=== PATIENT | male | born 1940 | race Caucasian/White ===

== ENCOUNTER 2024-10-16 13:42 | Outpatient (REF) | payer MEDICARE, SELFPAY ==
[2024-10-16 14:20] LABS: INR 1.36
== END 2024-10-16 13:43 | disposition home or self-care (01) ==
LOC: LAB 13:42
PROVIDERS: PCP Family Medicine; Visit Provider Family Medicine
DX: Z79.01 Long term (current) use of anticoagulants (principal)
CPT/HCPCS: 36415; 85610

== ENCOUNTER 2025-01-15 12:28 | Outpatient (REF) | payer MEDICARE, SELFPAY ==
--- OUTSIDE RECORDS SUMMARY | 2024-07-01 17:30 | XMS_ITS ---
Author Organization [facility] Address [address] [place], [place] Care Team Providers Care Travel Rn Name Role Phone RENAY wise Primary Care Provider [phone] Magalis, Provider Unavailable Unavail able Allergies Allergen (clinical drug ingredient) Drug/Non Drug Allergy documented on EMR Reaction Allergy Type Onset Date Status ciprofloxacin Cipro Unknown Drug Allergy Act jesus REASON FOR VISIT [facility] Encounter Medications Medication SIG (Take, Route, Frequency, Duration) Notes Start Date End Date Status Folic Acid 1 MG 1 tab(s) orally once a day Active Vitamin B1 100 MG 1 tab(s) orally once a day Active Multivitamin MULTIPLE VITAMINS 1 CAP(S) ORALLY ONCE A DAY *Please review and pick correct strength-formulati on from [facility] options. If intended option is not shown, discontinue and re-order from Quick Search* Active Omeprazole 40 MG 1 cap(s) orally BID for 30 day(s) Active K-DUR 20 20 MEQ 1 TAB(S) ORALLY TID *Please review for potential replacement for e-prescription and drug interaction check* 08/05/2010 Active Encounters Encounter Location Date Provider Diagnosis [facility] [address] [place], [place] 07/01/2024 Provider Magalis Hypokalemia 276.8 Assessments Encounter Date Diagnosis (ICD Code) Assessment Notes Treatment Notes Treatment Clinical Notes Section Notes 07/01/2024 Hypokalemia (ICD9-CM - 276.8) Plan Of Treatment Medication Medication Name Sig Start Date Stop Date Notes K-DUR 20 20 MEQ 1 TAB(S) ORALLY TID 08/05/2010 *Please review for potential replacement for e-prescription and drug interaction check* Progress Notes * NINA HAINESDOB: [birth year] (84 yo M)Acc No.[id number]:07/01/2024 Patient: NINA NUÑEZ Provider: :1940 A ge:84 Y S ex:Male Date:07/01/2024 Address:[address] [place] [address], [place], [id number] Pcp:ERNAY wise Subjective: * Chief Complaints: * [facility] . [facility] * Medical History: * Medications: T aking Folic Acid 1 MG Tablet 1 tab(s) orally once a day , Taking Multivitamin MULTIPLE VITAMINS CAPSULE 1 CAP(S) ORALLY ONCE A DAY , Notes to Pharmacist: *Please review and pick correct strength-formulation [facility]. If intended option is not shown, discontinue and re-order from Quick Search*, Taking Vitamin B1 100 MG Tablet 1 tab(s) orally once a day , Taking Omeprazole 40 MG Capsule Delayed Release 1 cap(s) orally BID * Allergies: C ipro. Objective: * Vitals: Assessment: * Assessment: 1. H ypokalemia - 276.8 Plan: * Treatment: * Billing Information: * Visit Code: * Procedure Codes: * Electronic signature of Molly Blancas on 01/15/2025 at 12:34 PM EDT Sign off status: Pending * Provider: Date: 09/01/2023 Generated for Emy castillo/Abelardo/Jean-Claude on: 0 01/15/2025 12:34 PM EDT
--- OUTSIDE RECORDS SUMMARY | 2025-01-15 12:33 | XMS_ITS | Patient Health Record ---
Author Organization [facility] Address [address] [place] [address] Care Team Providers Care Brick Grader Name Role Phone RENAY wise Primary Care Provider ZZZLAYLAMilillyation, Provider Unavailable Unavail able Allergies Allergen (clinical drug ingredient) Drug/Non Drug Allergy documented on EMR Reaction Allergy Type Onset Date Status ciprofloxacin Cipro Unknown Drug Allergy Act jesus Reason For Referral No Information Medications Medication SIG (Take, Route, Frequency, Duration) Notes Start Date End Date Status Folic Acid 1 MG 1 tab(s) orally once a day Active Vitamin B1 100 MG 1 tab(s) orally once a day Active Multivitamin MULTIPLE VITAMINS 1 CAP(S) ORALLY ONCE A DAY *Please review and pick correct strength-formulati on from [facility] options. If intended option is not shown, discontinue and re-order from Quick Search* Active Omeprazole 40 MG 1 cap(s) orally BID for 30 day(s) Active K-DUR 20 20 MEQ 1 TAB(S) ORALLY TID *Please review for potential replacement for e-prescription and drug interaction check* 08/05/2010 Active Encounters Encounter Location Date Provider Diagnosis [facility] [address] [place] [address] 07/01/2024 Provider Magalis Hypokalemia 276.8 Assessments Encounter Date Diagnosis (ICD Code) Assessment Notes Treatment Notes Treatment Clinical Notes Section Notes 07/01/2024 Hypokalemia (ICD9-CM - 276.8) Plan Of Treatment Pending Test Test Name Order Date CBC 08/01/2010 Magnesium 08/01/2010 Phosphorus 08/01/2010 CMP 08/01/2010 Insurance Providers Payer Name Payer Address Payer Phone Subscriber Number Group Number Insured Name Patient Relationship to Insured Coverage Start Date Coverage End Date MEDICARE [address] [place] [phone] [id number] NINA HAINES Self - patient is the insured [facility] Secondary [address] [place] [phone] [id number] NINA HAINES Self - patient is the insured Medical (General) History Medical History History ICD Code Pneumonia h/o Tobacco Abuse Erectile Dysfunction Anxiety diarrhea Barretts Esophagus BPH h/o Ethanol Abuse Surgical History Surgery Date(Month/Year) Cholecystectomy Hospitalization History Reason Date(Month/Year) diarrhea dehydration 07/2010
--- OUTSIDE RECORDS SUMMARY | 2025-01-15 12:33 | XMS_ITS | Encounter Summary ---
Author Organization [facility] Address [address] [place] [address] Care Team Providers Care Director Food And Beverage Name Role Phone Tarun Tapia MD Primary Care Provider [phone] Encounter Details Date Type Department Care Team (Late st Contact Info) Description 09/25/2024 Abstract [facility] [address] [place] [address] Unallocated, Noms Provider, [address] [place] [address] Social History Tobacco Use Types Packs/Day Years Used Date Smoking Tobacco: Never Smokeless Tobacco: Never Sex and Gender Information Value Date Recorded Sex Assigned at Not on file Legal Sex Male 7:14 PM EDT Gender Identity Not on file Sexual Orientation Not on file documented as of this encounter Plan of Treatment Upcoming Encounters Date Type Department Care Team (Late st Contact Info) Description 01/29/2025 1:20 PM EDT Office Visit [facility] [address] [place] [address] Connor Hill, DPM FACFAS [address] [facility] [place] [address] 02/02/2025 1:45 PM EDT Office Visit [facility] [address] [place] [address] Gabriel Schroeder, PA [address] [place] [address] 12/13/2025 1:00 PM EDT Office Visit [facility] [address] [place] [phone] Kaylan Barnes MD [address] [place] [address] documented as of this encounter Visit Diagnoses Not on filedocumented in this encounter Care Teams Director Food And Beverage Relationship Specialty Start Date End Date Tarun Tapia MD [address] [place] [address] PCP - General Internal Medicine 02/23/24 documented as of this encounter
--- OUTSIDE RECORDS SUMMARY | 2025-01-15 12:33 | XMS_ITS | Encounter Summary ---
Author Organization [facility] Address [id number] [address] [place] [address] Care Team Providers Care Washer Off Name Role Phone Julio Munroe MD Primary Care Provider [phone] Encounter Details Date Type Department Care Team (Late st Contact Info) Description 09/20/2024 Orders Only [facility] [address] [place] [id number] Transcribe, Orders Support User Pain (Primary Dx) Social History Tobacco Use Types Packs/Day Years Used Date Smoking Tobacco: Never Smokeless Tobacco: Never Alcohol Use Standard Drinks/Week Comments Not Currently 0 (1 standard drink = 0.6 oz pur e alcohol) [facility] Utilities Answer Date Recorded In the past 12 months has th e electric, gas, oil, or water company threatened to shut off services in your home? No 09/20/2024 AUDIT-C Answer Date Recorded Q1: How often do you have a drink containing alc ohol? Monthly or less 09/20/2024 Q2: How many drinks containi ng alcohol do you have on a typical day when you are drinking? 1 or 2 09/20/2024 Q3: How often do you have si x or more drinks on one occasion? Never 09/20/2024 PHQ-2 Answer Date Recorded Total Score 0 09/20/2024 PRAPARE - Transportation Answer Date Re corded In the past 12 months, has l ack of transportation kept you from medical appointments or from getting medications? No 09/09 In the past 12 months, has l ack of transportation kept you from meetings, work, or from getting things needed for daily living? No 09/20/2024 Housing Instability Answer Date Recorde d Are you worried or concerned that in the next two months you may not have stable housing that you own, rent or stay in as a part of a household? No 09/20/2024 Hunger Screening Answer Date Recorded Within the past 12 months we worried whether our food would run out before we got money to buy more. Never True 09/20/2024 Within the past 12 months th e food we bought just didn't last and we didn't have money to get more. Never True 09/20/2024 Sex and Gender Information Value Date Recorded Sex Assigned at Not on file Legal Sex Male 11:39 PM EDT Gender Identity Not on file Sexual Orientation Not on file documented as of this encounter Functional Status * Audit-C Score Answer Date of Assessment Author 1 09/20/2024 2:08 PM EDT Ra amy Schulz RN * Question Answer Date of Assessment Author Q1: How often do you have a drink containing alcohol? Monthly or less 09/20/2024 2:08 PM EDT Reta Schulz RN Q2: How many drinks containing alcohol do you have on a typical day when you are drinking? 1 or 2 09/20/2024 2:08 PM EDT Kalpana Schulz RN Q3: How often do you have six or more drinks on one occasion? Never 09/20/2024 2:08 PM EDT Kalpana Schulz RN * Question Answer Date of Assessment Author Functional Status Minimum assistance 09/20/2024 2:06 P M EDT Kalpana Schulz RN documented as of this encounter Mental Status * Question Answer Entry Date Author Overall Cognitive Status X 09/21/2024 2:01 PM EDT Curt Owens, Student OT * Question Answer Entry Date Author Overall Cognitive Status X 09/20/2024 9:08 AM EDT Sarah Bennett, WES-MAGAZINE EDITOR documented in this encounter Plan of Treatment Not on file documented as of this encounter Goals Goal Patient Goal Type Associated Problems Recent Progress Patient-Stated? Author <enter goal here> General Yes Tania Hernandez, RN Note: Evaluation of progress towards goal: DC safely to SNF documented as of this encounter Results * CT brain without contrast stroke alert (09/19/2024 11:05 PM EDT) us Scanning Provider External IMG CT ORDERABLES Fin al Result * X-ray chest 1 view (09/19/2024 11:05 PM EDT) us Scanning Provider External IMG DIAGNOSTIC IMAGIN G ORDERABLES Final Result * CT angiogram head (09/19/2024 11:00 PM EDT) us Scanning Provider External IMG CT ORDERABLES Fin al Result documented in this encounter Visit Diagnoses Diagnosis Pain- Primary Generalized pain documented in this encounter Additional Health Concerns Assessment Noted Time PHQ-9 Depression Total Score: 0 09/21/19 25 2:08 PM EDT documented as of this encounter Care Teams Washer Off Relationship Specialty Start Date End Date Julio Munroe MD [address] [place] [address] PCP - General Family Medicine 09/20/24 documented as of this encounter
--- OUTSIDE RECORDS SUMMARY | 2025-01-15 12:33 | XMS_ITS | Encounter Summary ---
Author Organization [facility] Address [id number] [address] [place] [address] Care Team Providers Care Order Clerk Name Role Phone Julio Munroe MD Primary Care Provider [phone] Reason for Visit * Reason Onset Date Comments Sign Off Patient Care 09/28/2024 Encounter Details Date Type Department Care Team (Late st Contact Info) Description 09/28/2024 Telephone [facility] [address] [place] [address] Cassia Pemberton MD [address] [place], [place] [id number] Sign Off Patient Care Social History Tobacco Use Types Packs/Day Years Used Date Smoking Tobacco: Never Smokeless Tobacco: Never Alcohol Use Standard Drinks/Week Comments Not Currently 0 (1 standard drink = 0.6 oz pur e alcohol) C Utilities Answer Date Recorded In the past 12 months has [employer], gas, oil, or water [employer] threatened to shut off services in your [...] on file documented as of this encounter Miscellaneous Notes * Telephone Encounter - Umm Coleman - 09/28/2024 9:07 AM EDT PER MESSAGE FROM THE 09/27/2024 D/C LIST: PER AAJ; HE HAS SIGNED OFF PT CARE FROM [facility] DX: ACUTE CVA,AFIB-PT NEEDS TO F/U IN 1-2 WEEKS-[facility] * Telephone Encounter - Alyssa Diaz CMA - 09/28/2024 9:07 AM EDT Pt still currenlty admitted * Telephone Encounter - Genet Plummer - 09/28/2024 9:07 AM EDT Currently admitted * Telephone Encounter - Alyssa Steel MA - 09/28/2024 9:07 AM EDT Pt still currently admitted to [facility]. JLW * Telephone Encounter - Alyssa Diaz CMA - 09/28/2024 9:07 AM EDT PT STILL CURRENTLY ADMITTED * Telephone Encounter - Bernice Hernandez - 09/28/2024 9:07 AM EDT PT STILL ADMITTED * Telephone Encounter - Genet Plummer - 09/28/2024 9:07 AM EDT Sched 10/10 documented in this encounter Plan of Treatment Not on file documented as of this encounter Goals Goal Patient Goal Type Associated Problems Recent Progress Patient-Stated? Author <enter goal here> General Yes Tania Hernandez, MANDY Note: Evaluation of progress towards goal: DC safely to SNF documented as of this encounter Visit Diagnoses Not on filedocumented in this encounter Additional Health Concerns Assessment Noted Time PHQ-9 Depression Total Score: 0 09/21/19 2:08 PM EDT documented as of this encounter Care Teams Order Clerk Relationship Specialty Start Date End Date Julio Munroe MD [address] [facility] [address] [place] [address] PCP - General Family Medicine 09/20/24 documented as of this encounter
--- OUTSIDE RECORDS SUMMARY | 2025-01-15 12:33 | XMS_ITS | Encounter Summary ---
Author Organization [facility] Address [address] [place] [address] Care Team Providers Care Checkerer Hand Name Role Phone Tarun Tapia MD Primary Care Provider [phone] Encounter Details Date Type Department Care Team (Late st Contact Info) Description 10/30/2024 Abstract [facility] [address] [place] [address] Unallocated, Noms Provider, [address] [place] [address] Social History Tobacco Use Types Packs/Day Years [...] EDT Office Visit [facility] [address] [place] [address] Connor Hill, DPM FACFAS [address] [facility] [place] [address] 02/02/2025 1:45 PM EDT Office Visit [facility] [address] [place] [address] Gabriel Schroeder, PA [address] [place] [address] 12/13/2025 1:00 PM EDT Office Visit [facility] [address] [place] [phone] Kaylan Barnes MD [address] [place] [address] documented as of this encounter Visit Diagnoses Not on filedocumented in this encounter Care Teams Checkerer Hand Relationship Specialty Start Date End Date Tarun Tapia MD [address] [place] [address] PCP - General Internal Medicine 02/23/24 documented as of this encounter
--- OUTSIDE RECORDS SUMMARY | 2025-01-15 12:33 | XMS_ITS | Encounter Summary ---
Author Organization [facility] Address [id number] [address] [place] [address] Care Team Providers Care Sheriffs Detective Name Role Phone Julio Munore MD Primary Care Provider [phone] Encounter Details Date Type Department Care Team (Late st Contact Info) Description 09/22/2024 Orders Only [facility] [place] [address] External, Scanning Provider Pain (Primary Dx) Social History Tobacco Use Types Packs/Day Years Used Date Smoking Tobacco: Never Smokeless Tobacco: Never Alcohol Use Standard Drinks/Week Comments Not Currently 0 (1 standard drink = 0.6 oz pur e alcohol) [facility] Utilities Answer Date Recorded In the past [...] on file documented as of this encounter Mental Status * Question Answer Entry Date Author Overall Cognitive Status WFL 09/25/2024 8:39 AM EDT Cadence Dye OTA/L documented in this encounter Plan of Treatment Not on file documented as of this encounter Goals Goal Patient Goal Type Associated Problems Recent Progress Patient-Stated? Author <enter goal here> General Yes Tania Hernandez, RN Note: Evaluation of progress towards goal: DC safely to SNF documented as of this encounter Results * Non [facility] (08/14/2024 10:10 AM EST) Narrative [facility] - 09/22/2024 9:57 AM EDT This order has been auto-finalized and does not contain a result. us Scanning Provider External CV CARDIAC SERVICES O RDERABLES Final Result [facility] * Non [facility] Echo (08/14/2024 10:05 AM EST) us Scanning Provider External CV ECHO ORDERABLES Fi nal Result XCELERA * Nuc stress Lexiscan (08/14/2024 10:05 AM EST) Narrative [facility] - 09/22/2024 9:57 AM EDT This order has been auto-finalized and does not contain a result. us Scanning Provider External CV STRESS ORDERABLES Final Result SECTRA[facility]G documented in this encounter Visit Diagnoses Diagnosis Pain Generalized pain Pain Generalized pain Pain- Primary Generalized pain documented in this encounter Additional Health Concerns Assessment Noted Time PHQ-9 Depression Total Score: 0 09/21/19 25 2:08 PM EDT documented as of this encounter Care Teams Sheriffs Detective Relationship Specialty Start Date End Date Julio Munroe MD 112 [facility] [address] [place] [address] PCP - General Family Medicine 09/20/24 documented as of this encounter
--- OUTSIDE RECORDS SUMMARY | 2025-01-15 12:33 | XMS_ITS | Encounter Summary ---
Author Organization [facility] Address [id number] [address] [place] [address] Care Team Providers Care Rubber Extrusion Machine Operator Name Role Phone Julio Munroe MD Primary Care Provider [phone] Encounter Details Date Type Department Care Team (Late st Contact Info) Description 09/21/2024 Orders Only [facility] [place] [address] Transcribe, Orders Support User Social History Tobacco Use Types Packs/Day Years Used Date Smoking Tobacco: Never Smokeless Tobacco: Never Alcohol Use Standard Drinks/Week Comments Not Currently 0 (1 standard drink = 0.6 oz pur e alcohol) [facility] Utilities Answer Date Recorded In the [...] 2:01 PM EDT Curt Owens, Student OT documented in this encounter Plan of Treatment [...] documented as of this encounter Care Teams Rubber Extrusion Machine Operator Relationship Specialty Start Date End Date Julio Munroe MD [address] [facility] [address] [place] [address] PCP - General Family Medicine 09/20/24 documented as of this encounter
--- OUTSIDE RECORDS SUMMARY | 2025-01-15 12:33 | XMS_ITS | Encounter Summary ---
Author Organization [facility] Address [address] [place] [address] Care Team Providers Care Beef Lugger Name Role Phone Tarun Tapia MD Primary Care Provider [phone] Encounter Details Date Type Department Care Team (Late st Contact Info) Description 01/03/2025 Abstract [facility] [address] [place] [address] Orlin Bain DO [address] [place] [address] Social History Tobacco Use Types Packs/Day Years [...] EDT Office Visit [facility] [address] [place] [address] Connor Hill, DPM FACFAS [address] [place] [address] 02/02/2025 1:45 PM EDT Office Visit [facility] [address] [place] [address] Gabriel Schroeder PA [address] [place] [address] 12/13/2025 1:00 PM EDT Office Visit [facility] [address] [place] [address] Kaylan Barnes MD [address] [place] [address] documented as of this encounter Visit Diagnoses Not on filedocumented in this encounter Care Teams Beef Lugger Relationship Specialty Start Date End Date Tarun Tapia MD [address] [facility] [place] [address] PCP - General Internal Medicine 02/23/24 documented as of this encounter
--- OUTSIDE RECORDS SUMMARY | 2025-01-15 12:34 | XMS_ITS | Encounter Summary ---
Author Organization [facility] Sys tem Address [id number] [address] [place] [address] Care Team Providers Care Table Inspector Name Role Phone Julio Munroe MD Primary Care Provider [phone] Encounter Details Date Type Department Care Team (Late st Contact Info) Description 01/03/2025 Orders Only [facility] [address] [place] [address] External, Scanning Provider Social History Tobacco Use Types Packs/Day Years Used Date Smoking Tobacco: Former Cigarettes Smokeless Tobacco: Never Comments:Quit in 1987 Alcohol Use Standard Drinks/Week Comments Not Currently 0 (1 standard drink = 0.6 oz pur e alcohol) [facility] Utilities Answer Date Recorded In [...] 09/20/2024 PHQ-2 Answer Date Recorded Total Score 3 10/26/2024 PRAPARE - Transportation Answer Date Re corded [...] got money to buy more. Never True 12/21/2024 Within the past 12 months th e food we bought just didn't last and we didn't have money to get more. Never True 12/21/2024 Sex and Gender Information Value Date Recorded Sex Assigned at Not on file Legal Sex Male 11:39 PM EDT Gender Identity Not on file Sexual Orientation Not on file documented as of this encounter Plan of Treatment Not on file documented as of this encounter Goals Goal Patient Goal Type Associated Problems Recent Progress Patient-Stated? Author <enter goal here> General Yes Tania Hernandez, RN Note: Evaluation of progress towards goal: DC safely to SNF documented as of this encounter Procedures Procedure Name Priority Date/Time Associated Diagnosis Comments ECG 12-LEAD Routine 09/19/2024 9:07 AM EDT documented in this encounter Results * ECG 12 lead (09/19/2024 9:07 AM EDT) us Scanning Provider External ECG ORDERABLES Final Result MANUALLY TRANSCRIBED RESULTS documented in this encounter Visit Diagnoses Not on filedocumented in this encounter Additional Health Concerns Assessment Noted Time PHQ-9 Depression Total Score: 3 10/27/19 25 2:01 PM EDT documented as of this encounter Care Teams Table Inspector Relationship Specialty Start Date End Date Julio Munroe MD [address] [place] [id number] PCP - General Family Medicine 09/20/24 documented as of this encounter
--- OUTSIDE RECORDS SUMMARY | 2025-01-15 12:34 | XMS_ITS | Clinical Summary ---
Author Organization [facility] Address [address] [place] [address] Care Team Providers Care Manager Food Safety Name Role Phone Tarun Tapia MD Primary Care Provider [phone] Allergies Active Allergy Reactions Criticality Noted Date Comments Ciprofloxacin Swelling 07/24/2013 Other Reaction(s): Eyelid swelling, Unknown Onion Low 03/26/2021 Other Reaction(s): Intolerance diarrhea Medications furosemide (Lasix) 40 MG tablet Take 40 mg by mouth in the morning. Active potassium chloride CR (K-Tab) 20 MEQ ER tablet Take 20 mEq by mouth in the morning. 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 10 mL 1 4 Active Active Problems No known active problems Encounters Date Type Department Care Team Description 01/08/2025 Clinisync Result Encounter [facility] External Department Unsolicited Orlin Bain, DO 01/07/2025 Clinisync Result Encounter [facility] External Department Unsolicited Orlin Bain, DO 01/06/2025 Clinisync Result Encounter [facility] External Department Unsolicited Orlin Bain, DO 01/05/2025 Clinisync Result Encounter [facility] External Department Unsolicited Orlin Bain, DO 01/04/2025 Clinisync Result Encounter [facility] External Department Unsolicited Orlin Bain, DO 01/03/2025 Abstract [facility] [address] [place] [address] Orlin Bain DO 12/18/2024 Telephone [facility] [address] [place] [address] Isabela Stock LPN Appointment Request 12/11/2024 2:00 PM EDT Office Visit [facility] [address] [place] [address] Kaylan Barnes MD Glaucoma suspect of both eyes (Primary Dx); Pseudophakia; PCO (posterior capsular opacification), bilateral 12/11/2024 Bamboo flowsheet [facility] [address] [place] [address] Kaylan Barnes MD 12/11/2024 Travel 10/30/2024 Abstract [facility] [address] [place] [phone] Unallocated, [facility] MD [place] 10/16/2024 Clinisync Result Encounter [facility] External Department Unsolicited Julio Munroe MD from Last 3 Months Family History Medical History Relation Name Comments Melanoma Neg Hx Social History Tobacco Use Types Packs/Day Years Used Date Smoking Tobacco: Never Smokeless Tobacco: Never Tobacco Cessation:Counseling Given: Not Answered Sex and Gender Information Value Date Recorded Sex Assigned at Not on file Legal Sex Male 7:14 PM EDT Gender Identity Not on file Sexual Orientation Not on file Plan of Treatment Upcoming Encounters Date Type Department Care Team (Late st Contact Info) Description 01/29/2025 1:20 PM EDT Office Visit [facility] [address] [place] [address] Connor Hill, DPM FACFAS [address] [place] [address] 02/02/2025 1:45 PM EDT Office Visit [facility] [address] [place] [address] Gabriel Schroeder, PA [address] [place] [address] 12/13/2025 1:00 PM EDT Office Visit [facility] [address] [place] [address] Kaylan Barnes MD [address] [place] [address] Health Maintenance Due Date Last Done Comments Influenza Vaccine (#1) 2025 4, 03/25/2023, 04/07/2022, Additional history exists Pneumococcal Vaccine: 65+ Years Completed 04/21/2016, 04/05/2015, 07/08/2009 Procedures Procedure Name Priority Date/Time Associated Diagnosis Comments [facility] EGFR Routine 01/08/2025 5:[address] [facility] LYTES Routine 01/08/2025 5:[address] [facility] CREATININE Routine 01/08/2025 5:[address] [facility] BUN Routine 01/08/2025 5:[address] [facility] CBC W/ AUTO DIFF Routine 01/08/2025 5:[address] [facility] EGFR Routine 01/07/2025 5:[address] [facility] LYTES Routine 01/07/2025 5:[address] [facility] CREATININE Routine 01/07/2025 5:[address] [facility] BUN Routine 01/07/2025 5:[address] [facility] CBC W/ AUTO DIFF Routine 01/07/2025 5:[address] [facility] CBC W/ AUTO DIFF Routine 01/06/2025 4:[address] [facility] EGFR Routine 01/06/2025 4:[address] [facility] LYTES Routine 01/06/2025 4:[address] [facility] CREATININE Routine 01/06/2025 4:[address] [facility] BUN Routine 01/06/2025 4:46 AM EDT XR HIP 1 VIEW LEFT + PELVIS 01/05/2025 2:[address] [facility] PT & PTT Routine 01/04/2025 12:54 PM EDT [facility] PROTHROMBIN TIME INR W/O COUM Routine 10/16/2024 1:00 PM EDT from Last 3 Months Results * [facility] LYTES (01/08/2025 5:23 AM EDT) Only the most recent of3 resultswithin the time period is included. [facility] SODIUM LVL 137 135 - 145 mmol/L [facility] POTASSIUM 3.6 3.5 - 5.3 mmol/L [facility] CHLORIDE 103 101 - 111 mmol/L [facility] CO2 28 21 - 31 mmol/L [facility] AGAP 10 6 - 16 mEq/L [facility] Blood 01/08/2025 5:23 AM EDT 01/08/2025 5:46 AM EDT Narrative [facility]IS[facility]NC - 01/08/2025 6:10 AM EDT Original Ordering Provider: DO Orlin Bain us Orlin Bain DO CLINISYNC Final Result [facility]NC [facility] * [facility] EGFR (01/08/2025 5:23 AM EDT) Only the most recent of3 resultswithin the time period is included. [facility] EGFR 59 >=59 mL/min/1.[address] [facility] Blood 01/08/2025 5:23 AM EDT 01/08/2025 5:46 AM EDT Narrative [facility]YNC - 01/08/2025 6:10 AM EDT Original Ordering Provider: DO Orlin Hernández Pocos Orlin Hernández Pocos DO CLINISYNC Final Result Performing Organization Address [facility] Co de Phone Number [facility] * FT CREATININE (01/08/2025 5:23 AM EDT) Only the most recent of3 resultswithin the time period is included. [facility] CREATININE 1.2 0.5 - 1.3 mg/dL [facility] Blood 01/08/2025 5:23 AM EDT 01/08/2025 5:46 AM EDT Narrative CLINISYNC - 01/08/2025 6:10 AM EDT Original Ordering Provider: DO Orlin Bain Orlin Hernández Pocos DO CLINIS[facility]NC Final Result Performing Organization Address [facility] de Phone Number [facility] * (ABNORMAL) [facility] CBC W/ AUTO DIFF (01/08/2025 5:23 AM EDT) Only the most recent of3 resultswithin the time period is included. [facility] WBC 6.5 4.0 - 11.0 E9/L [facility] RBC 3.5(L) 4.3 - 5.9 E12/L [facility] HGB 11.0(L) 13.5 - 17.5 gm/dL [facility] HCT 32.8(L) 37.7 - 49.0 % [facility] RDW 15.4(H) 10.9 - 14.2 % [facility] MCH 31.0 27.0 - 34.0 pg [facility] MCHC 33.4 31.4 - 36.0 gm/dL [facility] MCV 92.9 80.0 - 100.0 fL [facility] MPV 7.5 6.4 - 10.8 fL [facility] PLATELET 219.0 150.0 - 500.0 E9/L [facility] NEUTRO AUTO 69.2 36.0 - 75.0 % [facility] LYMPH AUTO 18.5 14.0 - 50.0 % [facility] MONO AUTO 8.9 4.0 - 14.0 % [facility] EOS AUTO 2.1 0.0 - 8.0 % [facility] BASOPHIL AUTO 1.3 0.0 - 2.0 % [facility] NEUTRO ABSOLUTE 4.5 2.0 - 7.5 E9/L [facility] LYMPH ABSOLUTE 1.2 1.0 - 4.0 E9/L [facility] MONO ABSOLUTE 0.6 0.2 - 1.0 E9/L [facility] EOS ABSOLUTE 0.1 0.0 - 0.5 E9/L [facility] BASOPHIL ABSOLUTE 0.1 0.0 - 0.2 E9/L [facility] Blood 01/08/2025 5:23 AM EDT 01/08/2025 5:45 AM EDT Narrative CLINISYNC - 01/08/2025 5:52 AM EDT Original Ordering Provider: DO Orlin Bain us Orlin Bain DO CLINISYNC Final Result Performing Organization Address [facility]/ZIP Co de Phone Number [facility] * (ABNORMAL) [facility] BUN (01/08/2025 5:23 AM EDT) Only the most recent of3 resultswithin the time period is included. [facility] BUN 26(H) 5 - 21 mg/dL [facility] Blood 01/08/2025 5:23 AM EDT 01/08/2025 5:46 AM EDT Narrative CLINISYNC - 01/08/2025 6:10 AM EDT Original Ordering Provider: DO Orlin Bain us Orlin Bain DO CLINIS[facility]NC Final Result Performing Organization Address City/[facility]/ZIP Co de Phone Number CLINISYNC [facility] * XR HIP 1 VIEW LEFT + PELVIS (01/05/2025 2:51 PM EDT) Anatomical Region Laterality Modality Other 01/05/2025 2:51 PM EDT Narrative 01/05/2025 3:00 PM EDT Exam Date/Time: 01/05/2025 14:52 EDT Reason for Exam: Post Op Report IMPRESSION: UNREMARKABLE RECENT LEFT HIP HEMIARTHROPLASTY PLACEMENT. EXAM: XR Hip 1 View Left + Pelvis DATE: 01/05/2025 2:51 PM CLINICAL HISTORY: Post Op. COMPARISON: 01/03/2025. TECHNIQUE: A portable AP radiograph of the pelvis and crosstable lateral radiograph of the left hip was obtained. FINDINGS: A left hip hemiarthroplasty is noted in expected position. There is no dislocation, periprosthetic fracture, or other significant changes from 01/03/2025 identified. Mild soft tissue emphysema and overlying skin laxmi are noted from recent placement. Ordering Provider: Orlin Bain FINAL REPORT Dictated: 01/05/2025 2:57 pm Shaun Rodriguez MD Signed (Electronic Signature): 01/05/2025 2:57 pm Signed by: Shaun Rodriguez MD Transcribed by: NATHEN Technologist: KATI Procedure Note Radiology, Radiologist, MD - 01/05/2025 Exam Date/Time: 01/05/2025 14:52 EDT Reason for Exam: Post Op Report IMPRESSION: UNREMARKABLE RECENT LEFT HIP HEMIARTHROPLASTY PLACEMENT. EXAM: XR Hip 1 View Left + Pelvis DATE: 01/05/2025 2:51 PM CLINICAL HISTORY: Post Op. COMPARISON: 01/03/2025. TECHNIQUE: A portable AP radiograph of the pelvis and crosstable lateralradiograph of the left hip was obtained. FINDINGS: A left hip hemiarthroplasty is noted in expected position. There is no dislocation, periprosthetic fracture, or other significantchanges from 01/03/2025 identified. Mild soft tissue emphysema and overlying skin laxmi are noted fromrecent placement. Ordering Provider: Orlin Bain FINAL REPORT Dictated: 01/05/2025 2:57 pm Shaun Rodriguez MD Signed (Electronic Signature): 01/05/2025 2:57 pm Signed by: Shaun Rodriguez MD Transcribed by: NATHEN Technologist: KATI Orlin Bain DO CLINISYNC IMAGING Final Result * (ABNORMAL) [facility] PT & PTT (01/04/2025 12:54 PM EDT) PT 22.7(H) 9.4 - 12.5 second(s) [facility] Comment: 15 days - 4 weeks 1 - 5 months 6 -11 months 1-5 years 6-10 years 11 -17 years Mean: 11.2 (9.5-12.6) Mean: 11.0 (9.7-12.8) Mean: 11.0 (9.8-13.0) Mean: 11.3 (9.9-13.4) Mean: 11.7 (10.0-14.6) Mean: 11.8 (10.0 - 14.1) Pediatric Reference ranges were obtained from a study by Juvencio Owens et al. prepared from 1437 samples obtained at 7 different centers using the same coagulation reagent and instrumentation as [facility]. Currently there are no coagulation studies available worldwide for children to 14 days, and no normal ranges. PTT 38.8(H) 25.1 - 36.5 second(s) [facility] Comment: Parameter 15 days - 4 weeks 1 - 5 months 6 - 11 months 1 - 5 years 6 - 10 years 11 - 17 years PTT Mean: 35.4 (27.6-45.6) Mean: 33.5 (24.8-40.7) Mean: 32.4 (25.1-40.7) Mean: 31.6 (24.0-39.2) Mean: 31.6 (26.9-38.7) Mean: 31.0 (24.6-38.4) Pediatric Reference ranges were obtained from a study by Juvencio Owens et macario. prepared from 1437 samples obtained at 7 different centers using the same coagulation reagent and instrumentation as [facility]. Currently there are no coagulation studies available worldwide for children to 14 days, and no normal ranges. Heparin therapeutic range (represented by Anti-Factor Xa activity of 0.2 - 0.4 U/mL) corresponds to PTT of 56.6 - 109.[address] [facility] Comment: INR results are specifically intended to assess patients stabilized on long-term Anticoagulation therapy suggested INR???s ???Less Intensive Anticoagulation??? 2.0 ??? 3.0 Conventional Range 3.0 ??? 4.5 Blood 01/04/2025 12:5 4 PM EDT 01/04/2025 12:56 PM EDT Narrative CLINISYNC - 01/04/2025 1:09 PM EDT pt en route to asu for pre op Original Ordering Provider: DO Orlin Bain us Orlin Bain DO CLINIS[facility]NC Final Result [facility]ISYNC [facility] * (ABNORMAL) [facility] PROTHROMBIN TIME INR W/O COUM (10/16/2024 1:00 PM EDT) PROTHROMBIN TIME 14.0(H) 9.0 - 11.6 sec [facility] INR 1.36 [facility] Comment: DESIRED INR: 2.0-3.0 CONDITIONS NOT LISTED BELOW 2.5-3.5 FOR PROSTHETIC HEART VALVE REPLACEMENT 2.5-3.5 RECURRENT THROMBOSIS 10/16/2024 1:00 PM EDT 10/16/2024 1:46 PM EDT Narrative CLINISYNC - 10/16/2024 2:39 PM EDT [facility] DROP OFF us Julio Munroe MD CLINISYNC Final Result [facility] from Last 3 Months Insurance [employer] Care Teams Manager Food Safety Relationship Specialty Start Date End Date Tarun Tapia MD [address] [place] [address] PCP - General Internal Medicine 02/23/24
--- OUTSIDE RECORDS SUMMARY | 2025-01-15 12:34 | XMS_ITS | Encounter Summary ---
Author Organization [facility] Sys tem Address [id number] [address] [place] [place] [address] Care Team Providers Care Group Home Supervisor Name Role Phone Julio Munroe MD Primary Care Provider [phone] Encounter Details Date Type Department Care Team (Late st Contact Info) Description 01/04/2025 Orders Only [facility] [address] [place] [phone] External, Scanning Provider Social History Tobacco Use Types Packs/Day Years Used Date Smoking Tobacco: Former Cigarettes Smokeless Tobacco: Never Comments:Quit in 1987 Alcohol Use Standard Drinks/Week Comments Not Currently 0 (1 standard drink = 0.6 oz pur e alcohol) [facility] Utilities Answer Date Recorded In the [...] Procedure Name Priority Date/Time Associated Diagnosis Comments CARDIAC INVASIVE Routine 08/14/2024 11:3 9 AM EST documented in this encounter Results * Cardiac Invasive (08/14/2024 11:39 AM EST) Anatomical Region Laterality Modality Other us Scanning Provider External CV CARDIAC CATH ORDER REUBEN Final Result documented in this encounter Visit Diagnoses Not on filedocumented in this encounter Additional Health Concerns Assessment Noted Time PHQ-9 Depression Total Score: 3 10/27/19 25 2:01 PM EDT documented as of this encounter Care Teams Group Home Supervisor Relationship Specialty Start Date End Date Julio Munroe MD [address] [facility] [address] [place] [address] PCP - General Family Medicine 09/20/24 documented as of this encounter
--- OUTSIDE RECORDS SUMMARY | 2025-01-15 12:34 | XMS_ITS | Encounter Summary ---
Author Organization [facility] Sys tem Address [id number] [address] [place] [address] Care Team Providers Care Inside Meter Tester Name Role Phone Julio Munroe MD Primary Care Provider [phone] Encounter Details Date Type Department Care Team (Late st Contact Info) Description 01/05/2025 Orders Only [facility] [address] [place] [address] External, Scanning Provider Social History Tobacco Use Types Packs/Day Years Used Date Smoking Tobacco: Former Cigarettes Smokeless Tobacco: Never Comments:Quit in 1987 Alcohol Use Standard Drinks/Week Comments Not Currently 0 (1 standard drink = 0.6 oz pur e alcohol) [facility] Utilities Answer Date Recorded In the [...] Procedure Name Priority Date/Time Associated Diagnosis Comments MULTIPLE LABS Routine 08/15/2024 7:44 AM EST LIPID PROFILE Routine 08/15/2024 VASC VENOUS DUPLEX LOWER BILATERAL Routine 08/14/2024 7:53 AM EST ECHO COMPLETE W CONTRAST Routine 08/14/2024 7:51 AM EST ECG 12-LEAD Routine 08/13/2024 7:55 AM EST XR CHEST 1 VW Routine 08/13/2024 7:[address] CTA CHEST Routine 08/13/2024 7:48 AM EST documented in this encounter Results * Multiple labs (08/15/2024 7:44 AM EST) us Scanning Provider External DE IMAGING Final Result MANUALLY TRANSCRIBED RESULTS * Lipid profile (08/15/2024) External Cholesterol 109 MANUALLY TRANSCRIBED RESULTS External Hdl Cholesterol 48 MANUALLY TRANSCRIBED RESULTS DIRECT LDL 52 <=130 mg/dL MANUALLY TRANSCRIBED RESULTS External Triglycerides 73 MANUALLY TRANSCRIBED RESULTS Vldl,Cholesterol 15 MAN UALLY TRANSCRIBED RESULTS Blood Venous blood / Unknown us Scanning Provider External LAB BLOOD ORDERABLES Edited Result - Final MANUALLY TRANSCRIBED RESULTS * Vas venous duplex lwr bilateral (08/14/2024 7:53 AM EST) Anatomical Region Laterality Modality Vascular Bilateral Ultrasound us Scanning Provider External CV VASCULAR ORDERABLE S Final Result * Echo complete W/ contrast (08/14/2024 7:51 AM EST) Anatomical Region Laterality Modality Chest N/A Ultrasound us Scanning Provider External CV ECHO ORDERABLES Fi nal Result * ECG 12 lead (08/13/2024 7:55 AM EST) us Scanning Provider External ECG ORDERABLES Final Result Performing Organization Address [facility] de Phone Number MANUALLY TRANSCRIBED RESULTS * X-ray chest 1 view (08/13/2024 7:49 AM EST) Anatomical Region Laterality Modality Body, Chest N/A Computed Radiogr aphy us Scanning Provider External IMG DIAGNOSTIC IMAGIN G ORDERABLES Final Result * CT angiogram chest (08/13/2024 7:48 AM EST) Anatomical Region Laterality Modality Lung, Body, Chest, Vascular, Body Covera N/A Computed Tomography us Scanning Provider External IMG CT ORDERABLES Fin al Result documented in this encounter Visit Diagnoses Not on filedocumented in this encounter Additional Health Concerns Assessment Noted Time PHQ-9 Depression Total Score: 3 10/27/19 25 2:01 PM EDT documented as of this encounter Care Teams Inside Meter Tester Relationship Specialty Start Date End Date Julio Munroe MD [address] [facility] [address] [place] [address] PCP - General Family Medicine 09/20/24 documented as of this encounter
--- OUTSIDE RECORDS SUMMARY | 2025-01-15 12:34 | XMS_ITS ---
Author Organization [employer] [facility] Address [id number] [address] 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 Past Treatment and Therapy Plans No past plan information found. Lifetime Dose Tracking * Chemical Lifetime Dose Automatic Entry Manual Entr y Fluoroscopy 537 mGy 0 mGy 537 mGy
--- OUTSIDE RECORDS SUMMARY | 2025-01-15 12:34 | XMS_ITS | Continuity of Care Document ---
Author Organization [facility] Address [address] [id number] Insurance Providers Payer Plan Claims Address Claims Phone Policy Number Group Number Relation Employer Guarantor Name Guarantor Guarantor Address Guarantor Phone [employer] [address] [address], [place] [address] tel:[phone] Self John Paul Velezgle [address], [place] [address] [employer] [address] [address], [place] [address] [id number] Self John Paul Villanuevae [address], [place] [address] Medic are [id number] Self John Paul Villanuevae [address], [place] [address] Problems Condition ICD9 code ICD10 code SNOMED code Start Date End Date S tatus Displaced subtrochanteric fracture of right femur, subsequent encounter for closed fracture with routine healing S72.21XD 08/31/2024 Active Unspecified systolic (congestive) heart failure I50.20 08/31/2024 Active Malignant neoplasm of prostate C61 08/31/2024 Active Type 2 diabetes mellitus without complications E11.9 08/31/2024 Act jesus Muscle weakness (generalized) M62.81 09/01/2024 Active Difficulty in walking, not elsewhere classified R26.2 09/01/2024 Active Limitation of activities due to disability Z73.6 09/02/2024 Active Dysphagia, oropharyngeal phase R13.12 08/31/2024 Active Cognitive communication deficit R41.841 08/31/2024 Active Nutritional deficiency, unspecified E63.9 09/05/2024 Active Encounter for other orthopedic aftercare Z47.89 08/31/2024 Acti ve 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 I63.511 09/25/2024 Ac tive Cerebral infarction, unspecified I63.9 09/25/2024 Active 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 Refere nce Range Tuberculosis reaction wheal[ 11519-2] Tuberculosis reaction wheal [66510-2] 09/10/2024 05:00 PM 0 mm NEG Tuberculosis reaction wheal[ 72508-8] Tuberculosis reaction wheal [95152-0] 09/10/2024 05:00 PM See note TB test Tuberculosis reaction wheal[ 19965-9] Tuberculosis reaction wheal [00345-2] 08/31/2024 03:10 PM 0 mm NEG Allergies, adverse reactions, alerts Substance Reaction Date Status Type ciprofloxacin (bulk) 08/31/2024 Non Drug Immunizations Vaccine Route Date Status COVID-19 Vaccine Unassigned Route of Administration Completed Influenza Vaccine Unassigned Route of Administration 0 03/28/2024 Completed Pneumococcal Vaccine Unassigned Route of Administratio n 04/21/2016 Completed COVID-19 Vaccine Unassigned Route of Administration Refused Medications Medication Instructions Route Dosage Frequency Start Date Stop Date Indications Status acetaminophen 500 mg tablet (acetaminophe n) 2 tabs, oral, Every 8 Hours oral 1.0 8.0 h 09/09 Displaced subtrochanteri c fracture of right femur, subsequent encounter for closed fracture with routine healing Active aspirin 81 mg tablet,delaye d release (DR/EC) (aspirin) 1 tab, oral, Twice A Day oral 1.0 12.0 h 09/21 Displaced subtrochanteri c fracture of right femur, subsequent encounter for closed fracture with routine healing Active atorvastatin 40 mg tablet (atorvastatin ) 1 tab, oral, At Bedtime, for hyperlipidemia oral 1.0 09/21 Active carvedilol 3.125 mg tablet (carvedilol) 1 tab, oral, Once A Day, for hypertension oral 1.0 1.0 d 08/31 Active furosemide 40 mg tablet (furosemide) 1 tab, oral, Once A Day oral 1.0 1.0 d 09/21 Unspecified systolic (congestive) heart failure Active Jardiance (empagliflozi n) 10 mg tablet (Jardiance (empagliflozi n)) 1 tab, oral, Once A Day oral 1.0 1.0 d 09/15 Type 2 diabetes mellitus without complications Active lidocaine 4 % adhesive patch,medicat ed (lidocaine) 1 patch, topical, Once A Day topical 1.0 1.0 d 09/21 Displaced subtrochanteri c fracture of right femur, subsequent encounter for closed fracture with routine healing Active methocarbamol 500 mg tablet (methocarbamo l) 1 tab, oral, Three Times A Day oral 1.0 8.0 h 09/09 Displaced subtrochanteri c fracture of right femur, subsequent encounter for closed fracture with routine healing Active potassium chloride 20 mEq tablet extended release (potassium chloride) 1 tab, oral, Once A Day, as a supplement oral 1.0 1.0 d 09/21 Active prednisoln aa-gomclcta-f romfen 1-0.5-0.075 % drops (prednisoln km-hmcqwkiv-o romfen) 1 drop, ophthalmic (eye), Four Times A Day, treatment of Opthalmic conditions 1.0 6.0 h 09/02 Type 2 diabetes mellitus without complications Active Artificial Tears (PF) (dextran 70-hypromello se) - dropperette (Artificial Tears (PF) (dextran 70-hypromello se)) 1 gtt, ophthalmic (eye), Every 2 Hours - PRN, dryness 1.0 2.0 h 09/07 Active Coreg (carvedilol) 3.125 mg tablet (Coreg (carvedilol)) 1 tab, oral, Twice A Day oral 1.0 12.0 h 09/18 Unspecified systolic (congestive) heart failure Active Artificial Tears(pg-hypm -glyc) (peg 400-hypromell ose-glycerin) 1-0.2-0.2 % drops (Artificial Tears(pg-hypm -glyc) (peg 400-hypromell ose-glycerin) ) 1 drop each eye, ophthalmic (eye), As Needed, dryness 1.0 1.0 d 09/21 Active Colace (docusate sodium) 100 mg capsule (Colace (docusate sodium)) 100 mg, oral, Twice A Day oral 1.0 12.0 h 09/15 Active Miralax (polyethylene glycol 3350) 17 gram/dose powder (Miralax (polyethylene glycol 3350)) 17 gram, oral, Once A Day, Give a dose now then start daily tomorrow am oral 1.0 1.0 d 09/15 Active acetaminophen 650 mg tablet extended release (acetaminophe n) 1 tab, oral, Every 6 Hours - PRN, pain oral 1.0 6.0 h 09/21 Active Miralax (polyethylene glycol 3350) 17 gram/dose powder (Miralax (polyethylene glycol 3350)) 17 gram, oral, Once A Day - PRN, Give a dose now then start daily tomorrow am oral 1.0 1.0 d 09/21 Active acetaminophen 500 mg tablet (acetaminophe n) 2 tabs, oral, Every 8 Hours oral 1.0 8.0 h 09/19 Displaced subtrochanteri c fracture of right femur, subsequent encounter for closed fracture with routine healing Active methocarbamol 500 mg tablet (methocarbamo l) 1 tab, oral, Three Times A Day oral 1.0 8.0 h 09/19 Displaced subtrochanteri c fracture of right femur, subsequent encounter for closed fracture with routine healing Active acetaminophen 500 mg tablet (acetaminophe n) 2 tabs, oral, Every 8 Hours, for pain oral 1.0 8.0 h 10/19 Active aspirin 81 mg tablet,chewab le (aspirin) 1 tab, oral, Twice A Day oral 1.0 12.0 h 10/19 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 Active atorvastatin 20 mg tablet (atorvastatin ) 1 tab, oral, At Bedtime oral 1.0 10/19 Atherosclerosi s of ute arteries of extremities with intermittent claudication, unspecified extremity Active Jardiance (empagliflozi n) 10 mg tablet (Jardiance (empagliflozi n)) 1 tab, oral, Once A Day oral 1.0 1.0 d 10/19 Unspecified systolic (congestive) heart failure Active lidocaine 5 % adhesive patch,medicat ed (lidocaine) 1 patch, topical, Twice A Day, on in am off in pm topical 1.0 12.0 h 10/19 Active Miralax (polyethylene glycol 3350) 17 gram/dose powder (Miralax (polyethylene glycol 3350)) 17 grams, oral, Once A Day, for constipation oral 1.0 1.0 d 10/19 Active potassium chloride 10 mEq tablet extended release (potassium chloride) 1 tab, oral, Once A Day oral 1.0 1.0 d 10/05 Nutritional deficiency, unspecified Active Senna Plus (sennosides-d ocusate sodium) 8.6-50 mg tablet (Senna Plus (sennosides-d ocusate sodium)) 2 tabs, oral, Twice A Day - PRN, as needed for constipation oral 1.0 12.0 h 10/19 Active warfarin 2.5 mg tablet (warfarin) 1 tab, oral, At Bedtime oral 1.0 10/12 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 Active Artificial Tears (cmc) (carboxymethy lcellulose sodium) 1 % drops (Artificial Tears (cmc) (carboxymethy lcellulose sodium)) 1 drop, ophthalmic (eye), Every 2 Hours - PRN, every 2 hours as needed for dry eyes 1.0 2.0 h 10/19 Active potassium chloride 20 mEq tablet extended release (potassium chloride) 1 tablet, oral, Once A Day, diuretic therapy oral 1.0 1.0 d 10/19 Active Lasix (furosemide) 40 mg tablet (Lasix (furosemide)) 40, oral, Once A Day oral 1.0 1.0 d 10/19 Active Imodium A-D (loperamide) 2 mg tablet (Imodium A-D (loperamide)) 2 mg, oral, Every 6 Hours - PRN oral 1.0 6.0 h 10/19 Constipation, unspecified Active warfarin 3 mg tablet (warfarin) 1 tab, oral, At Bedtime oral 1.0 10/19 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 Active Vital Signs Date Vital Result Comment 08/31/2024 10:10 PM Body Height (8302-2) 68 [in_us] 08/31/2024 06:01 PM Temperature (8310-5) 97.9 [degF] Oxygen Saturation (04137-0) 97 % Respiratory Rate (9279-1) 16 /min Heart Rate (8867-4) 93 /min Blood Pressure Systolic (8480-6) 107 mm[Hg] Blood Pressure Diastolic (8462-4) 70 mm[Hg] 09/01/2024 12:19 AM Temperature (8310-5) 98.4 [degF] Oxygen Saturation (95430-0) 97 % Respiratory Rate (9279-1) 18 /min Heart Rate (8867-4) 86 /min Blood Pressure Systolic (8480-6) 104 mm[Hg] Blood Pressure Diastolic (8462-4) 68 mm[Hg] 09/01/2024 10:00 AM Temperature (8310-5) 98.3 [degF] Oxygen Saturation (57265-9) 96 % Respiratory Rate (9279-1) 18 /min Heart Rate (8867-4) 73 /min Blood Pressure Systolic (8480-6) 103 mm[Hg] Blood Pressure Diastolic (8462-4) 65 mm[Hg] 09/01/2024 09:49 AM Temperature (8310-5) 98.4 [degF] Oxygen Saturation (82407-2) 96 % Respiratory Rate (9279-1) 18 /min Heart Rate (8867-4) 73 /min Blood Pressure Systolic (8480-6) 103 mm[Hg] Blood Pressure Diastolic (8462-4) 65 mm[Hg] 09/01/2024 10:04 PM Temperature (8310-5) 98.1 [degF] Respiratory Rate (9279-1) 18 /min Heart Rate (8867-4) 78 /min Blood Pressure Systolic (8480-6) 112 mm[Hg] Blood Pressure Diastolic (8462-4) 67 mm[Hg] 09/02/2024 07:33 AM Heart Rate (8867-4) 82 /min 09/02/2024 07:31 AM Temperature (8310-5) 98.1 [degF] Oxygen Saturation (28784-4) 98 % Respiratory Rate (9279-1) 16 /min Blood Pressure Systolic (8480-6) 128 mm[Hg] Blood Pressure Diastolic (8462-4) 77 mm[Hg] 09/02/2024 04:29 PM Temperature (8310-5) 98.2 [degF] Oxygen Saturation (46300-9) 99 % Respiratory Rate (9279-1) 16 /min Heart Rate (8867-4) 79 /min Blood Pressure Systolic (8480-6) 122 mm[Hg] Blood Pressure Diastolic (8462-4) 68 mm[Hg] 09/03/2024 06:24 AM Temperature (8310-5) 98.3 [degF] Oxygen Saturation (72295-4) 97 % Respiratory Rate (9279-1) 16 /min Heart Rate (8867-4) 82 /min Blood Pressure Systolic (8480-6) 115 mm[Hg] Blood Pressure Diastolic (8462-4) 66 mm[Hg] 09/03/2024 07:59 AM Temperature (8310-5) 98.3 [degF] Oxygen Saturation (05741-9) 95 % Respiratory Rate (9279-1) 18 /min Heart Rate (8867-4) 75 /min Blood Pressure Systolic (8480-6) 118 mm[Hg] Blood Pressure Diastolic (8462-4) 62 mm[Hg] 09/03/2024 04:31 PM Temperature (8310-5) 98.2 [degF] Oxygen Saturation (23455-2) 98 % Respiratory Rate (9279-1) 18 /min Heart Rate (8867-4) 82 /min Blood Pressure Systolic (8480-6) 110 mm[Hg] Blood Pressure Diastolic (8462-4) 54 mm[Hg] 09/04/2024 12:40 AM Temperature (8310-5) 98.3 [degF] Oxygen Saturation (24378-9) 96 % Respiratory Rate (9279-1) 16 /min Heart Rate (8867-4) 78 /min Blood Pressure Systolic (8480-6) 114 mm[Hg] Blood Pressure Diastolic (8462-4) 62 mm[Hg] 09/04/2024 10:00 AM Temperature (8310-5) 98.4 [degF] Oxygen Saturation (37809-1) 95 % Respiratory Rate (9279-1) 18 /min Heart Rate (8867-4) 91 /min Blood Pressure Systolic (8480-6) 106 mm[Hg] Blood Pressure Diastolic (8462-4) 50 mm[Hg] 09/05/2024 10:00 AM Temperature (8310-5) 98.3 [degF] Oxygen Saturation (43514-0) 97 % Respiratory Rate (9279-1) 18 /min Heart Rate (8867-4) 111 /min Blood Pressure Systolic (8480-6) 112 mm[Hg] Blood Pressure Diastolic (8462-4) 64 mm[Hg] 09/04/2024 02:50 PM Body Weight (04370-1) 156 [lb_av] Body Mass Index (79392-0) 23.72 kg/m2 09/06/2024 07:56 AM Temperature (8310-5) 98.2 [degF] Oxygen Saturation (77507-9) 100 % Respiratory Rate (9279-1) 18 /min Heart Rate (8867-4) 71 /min Blood Pressure Systolic (8480-6) 101 mm[Hg] Blood Pressure Diastolic (8462-4) 68 mm[Hg] 09/07/2024 11:50 AM Temperature (8310-5) 97.9 [degF] Oxygen Saturation (49660-6) 98 % Respiratory Rate (9279-1) 18 /min Heart Rate (8867-4) 94 /min Blood Pressure Systolic (8480-6) 122 mm[Hg] Blood Pressure Diastolic (8462-4) 66 mm[Hg] 09/08/2024 06:48 AM Temperature (8310-5) 98.2 [degF] Oxygen Saturation (68564-7) 98 % Respiratory Rate (9279-1) 18 /min Heart Rate (8867-4) 72 /min Blood Pressure Systolic (8480-6) 105 mm[Hg] Blood Pressure Diastolic (8462-4) 57 mm[Hg] 09/09/2024 09:55 AM Temperature (8310-5) 98.3 [degF] Oxygen Saturation (93810-0) 93 % Respiratory Rate (9279-1) 18 /min Heart Rate (8867-4) 85 /min Blood Pressure Systolic (8480-6) 110 mm[Hg] Blood Pressure Diastolic (8462-4) 46 mm[Hg] 09/10/2024 09:32 AM Temperature (8310-5) 98.1 [degF] Oxygen Saturation (80603-0) 94 % Respiratory Rate (9279-1) 18 /min Heart Rate (8867-4) 81 /min Blood Pressure Systolic (8480-6) 112 mm[Hg] Blood Pressure Diastolic (8462-4) 56 mm[Hg] 09/11/2024 08:14 AM Temperature (8310-5) 98 [degF] Oxygen Saturation (41877-6) 95 % Respiratory Rate (9279-1) 18 /min Heart Rate (8867-4) 102 /min Blood Pressure Systolic (8480-6) 102 mm[Hg] Blood Pressure Diastolic (8462-4) 60 mm[Hg] 09/12/2024 06:36 AM Temperature (8310-5) 98 [degF] Oxygen Saturation (02500-3) 97 % Respiratory Rate (9279-1) 18 /min Heart Rate (8867-4) 89 /min Blood Pressure Systolic (8480-6) 134 mm[Hg] Blood Pressure Diastolic (8462-4) 69 mm[Hg] 09/13/2024 08:28 AM Temperature (8310-5) 98.2 [degF] Oxygen Saturation (78873-0) 96 % Respiratory Rate (9279-1) 16 /min Heart Rate (8867-4) 60 /min Blood Pressure Systolic (8480-6) 114 mm[Hg] Blood Pressure Diastolic (8462-4) 60 mm[Hg] 09/13/2024 11:59 AM Body Weight (97848-4) 153 [lb_av] Body Mass Index (64973-0) 23.26 kg/m2 09/14/2024 02:52 PM Body Weight (40291-6) 153 [lb_av] Body Mass Index (56074-8) 23.26 kg/m2 09/14/2024 09:42 AM Temperature (8310-5) 98.2 [degF] Oxygen Saturation (65944-1) 96 % Respiratory Rate (9279-1) 18 /min Heart Rate (8867-4) 73 /min Blood Pressure Systolic (8480-6) 100 mm[Hg] Blood Pressure Diastolic (8462-4) 56 mm[Hg] 09/15/2024 09:54 AM Temperature (8310-5) 98.2 [degF] Oxygen Saturation (48730-8) 99 % Respiratory Rate (9279-1) 18 /min Heart Rate (8867-4) 62 /min Blood Pressure Systolic (8480-6) 120 mm[Hg] Blood Pressure Diastolic (8462-4) 68 mm[Hg] 09/16/2024 08:27 AM Temperature (8310-5) 98.2 [degF] Oxygen Saturation (04122-5) 98 % Respiratory Rate (9279-1) 18 /min Heart Rate (8867-4) 70 /min Blood Pressure Systolic (8480-6) 126 mm[Hg] Blood Pressure Diastolic (8462-4) 68 mm[Hg] 09/17/2024 08:01 AM Temperature (8310-5) 98.2 [degF] Oxygen Saturation (48255-9) 98 % Respiratory Rate (9279-1) 18 /min Heart Rate (8867-4) 80 /min Blood Pressure Systolic (8480-6) 118 mm[Hg] Blood Pressure Diastolic (8462-4) 57 mm[Hg] 09/18/2024 09:35 AM Temperature (8310-5) 98.5 [degF] Oxygen Saturation (57171-0) 98 % Respiratory Rate (9279-1) 18 /min Heart Rate (8867-4) 68 /min Blood Pressure Systolic (8480-6) 104 mm[Hg] Blood Pressure Diastolic (8462-4) 64 mm[Hg] 09/19/2024 08:08 AM Temperature (8310-5) 98.2 [degF] Oxygen Saturation (33357-2) 98 % Respiratory Rate (9279-1) 18 /min Heart Rate (8867-4) 70 /min Blood Pressure Systolic (8480-6) 114 mm[Hg] Blood Pressure Diastolic (8462-4) 64 mm[Hg] 09/19/2024 01:28 PM Body Weight (81596-5) 155 [lb_av] Body Mass Index (24440-0) 23.57 kg/m2 09/19/2024 09:36 PM Temperature (8310-5) 98.2 [degF] Oxygen Saturation (31549-6) 95 % Respiratory Rate (9279-1) 18 /min Heart Rate (8867-4) 62 /min Blood Pressure Systolic (8480-6) 125 mm[Hg] Blood Pressure Diastolic (8462-4) 78 mm[Hg] 10/05/2024 01:36 AM Temperature (8310-5) 98.4 [degF] Oxygen Saturation (85663-1) 96 % Respiratory Rate (9279-1) 18 /min Heart Rate (8867-4) 68 /min Blood Pressure Systolic (8480-6) 99 mm[Hg] Blood Pressure Diastolic (8462-4) 70 mm[Hg] 10/04/2024 08:26 PM Temperature (8310-5) 98.2 [degF] Oxygen Saturation (08628-2) 97 % Respiratory Rate (9279-1) 16 /min Heart Rate (8867-4) 67 /min Blood Pressure Systolic (8480-6) 135 mm[Hg] Blood Pressure Diastolic (8462-4) 74 mm[Hg] 10/05/2024 10:24 AM Heart Rate (8867-4) 74 /min 10/05/2024 10:23 AM Temperature (8310-5) 98.1 [degF] Oxygen Saturation (72096-5) 96 % Respiratory Rate (9279-1) 18 /min Blood Pressure Systolic (8480-6) 104 mm[Hg] Blood Pressure Diastolic (8462-4) 77 mm[Hg] 10/05/2024 01:25 PM Body Weight (45044-6) 151.5 [lb_av ] Body Mass Index (55487-5) 23.03 kg/m2 10/05/2024 08:53 PM Temperature (8310-5) 98 [degF] Oxygen Saturation (75894-7) 97 % Respiratory Rate (9279-1) 16 /min Heart Rate (8867-4) 75 /min Blood Pressure Systolic (8480-6) 111 mm[Hg] Blood Pressure Diastolic (8462-4) 75 mm[Hg] 10/06/2024 06:52 AM Temperature (8310-5) 97 [degF] Oxygen Saturation (98267-3) 98 % Respiratory Rate (9279-1) 18 /min Heart Rate (8867-4) 71 /min Blood Pressure Systolic (8480-6) 114 mm[Hg] Blood Pressure Diastolic (8462-4) 79 mm[Hg] 10/06/2024 11:30 AM Temperature (8310-5) 97.5 [degF] Oxygen Saturation (22581-4) 97 % Respiratory Rate (9279-1) 18 /min Heart Rate (8867-4) 78 /min Blood Pressure Systolic (8480-6) 118 mm[Hg] Blood Pressure Diastolic (8462-4) 82 mm[Hg] 10/07/2024 02:19 AM Temperature (8310-5) 98.3 [degF] Oxygen Saturation (74978-8) 98 % Respiratory Rate (9279-1) 16 /min Heart Rate (8867-4) 58 /min Blood Pressure Systolic (8480-6) 110 mm[Hg] Blood Pressure Diastolic (8462-4) 52 mm[Hg] 10/07/2024 09:53 AM Temperature (8310-5) 98.1 [degF] Oxygen Saturation (51640-5) 96 % Respiratory Rate (9279-1) 18 /min Heart Rate (8867-4) 85 /min Blood Pressure Systolic (8480-6) 110 mm[Hg] Blood Pressure Diastolic (8462-4) 66 mm[Hg] 10/08/2024 12:55 AM Temperature (8310-5) 98 [degF] Oxygen Saturation (44100-3) 98 % Respiratory Rate (9279-1) 16 /min Heart Rate (8867-4) 71 /min Blood Pressure Systolic (8480-6) 133 mm[Hg] Blood Pressure Diastolic (8462-4) 71 mm[Hg] 10/08/2024 09:58 AM Temperature (8310-5) 98.1 [degF] Oxygen Saturation (82139-1) 97 % Respiratory Rate (9279-1) 16 /min Heart Rate (8867-4) 80 /min Blood Pressure Systolic (8480-6) 110 mm[Hg] Blood Pressure Diastolic (8462-4) 62 mm[Hg] 10/09/2024 09:59 AM Temperature (8310-5) 98.2 [degF] Oxygen Saturation (27458-8) 97 % Respiratory Rate (9279-1) 18 /min Heart Rate (8867-4) 80 /min Blood Pressure Systolic (8480-6) 120 mm[Hg] Blood Pressure Diastolic (8462-4) 74 mm[Hg] 10/10/2024 08:40 AM Temperature (8310-5) 98.4 [degF] Oxygen Saturation (53140-1) 98 % Respiratory Rate (9279-1) 18 /min Heart Rate (8867-4) 84 /min Blood Pressure Systolic (8480-6) 129 mm[Hg] Blood Pressure Diastolic (8462-4) 77 mm[Hg] 10/11/2024 07:39 AM Temperature (8310-5) 98.2 [degF] Oxygen Saturation (49724-2) 99 % Respiratory Rate (9279-1) 18 /min Heart Rate (8867-4) 72 /min Blood Pressure Systolic (8480-6) 142 mm[Hg] Blood Pressure Diastolic (8462-4) 89 mm[Hg] 10/12/2024 09:44 AM Temperature (8310-5) 98.3 [degF] Oxygen Saturation (12668-6) 96 % Respiratory Rate (9279-1) 16 /min Heart Rate (8867-4) 67 /min Blood Pressure Systolic (8480-6) 122 mm[Hg] Blood Pressure Diastolic (8462-4) 68 mm[Hg] 10/13/2024 10:20 AM Temperature (8310-5) 98.2 [degF] Oxygen Saturation (79700-0) 95 % Respiratory Rate (9279-1) 18 /min Heart Rate (8867-4) 94 /min Blood Pressure Systolic (8480-6) 98 mm[Hg] Blood Pressure Diastolic (8462-4) 68 mm[Hg] 10/14/2024 01:37 PM Temperature (8310-5) 97.8 [degF] Oxygen Saturation (94923-3) 95 % Respiratory Rate (9279-1) 18 /min Heart Rate (8867-4) 80 /min Blood Pressure Systolic (8480-6) 103 mm[Hg] Blood Pressure Diastolic (8462-4) 70 mm[Hg] 10/16/2024 10:01 AM Temperature (8310-5) 98.2 [degF] Oxygen Saturation (25357-7) 97 % Respiratory Rate (9279-1) 16 /min Heart Rate (8867-4) 75 /min Blood Pressure Systolic (8480-6) 102 mm[Hg] Blood Pressure Diastolic (8462-4) 52 mm[Hg] 10/17/2024 10:04 AM Temperature (8310-5) 98.2 [degF] Oxygen Saturation (61408-7) 95 % Respiratory Rate (9279-1) 18 /min Heart Rate (8867-4) 93 /min Blood Pressure Systolic (8480-6) 126 mm[Hg] Blood Pressure Diastolic (8462-4) 64 mm[Hg] 10/18/2024 09:47 AM Temperature (8310-5) 98.3 [degF] Oxygen Saturation (40983-3) 95 % Respiratory Rate (9279-1) 16 /min Heart Rate (8867-4) 81 /min Blood Pressure Systolic (8480-6) 124 mm[Hg] Blood Pressure Diastolic (8462-4) 64 mm[Hg] 10/18/2024 10:29 PM Body Weight (79208-4) 154.5 [lb_av ] Body Mass Index (63435-1) 23.49 kg/m2 Social History No smoking Hx information available Encounters Type CPT Code Date Location Provider Indication s encounter report 08/31/2024 02:50 PM Albin Munroe MD encounter report 08/31/2024 05:3 0 PM - 09/19/2024 10:05 PM Julio Munroe MD encounter report 08/31/2024 05:3 0 PM - 10/19/2024 09:29 AM Julio Munroe MD Advance Directives Directive Description Verification Date Supporting Document(s) Other Directive
--- OUTSIDE RECORDS SUMMARY | 2025-01-15 12:34 | XMS_ITS | Clinical Summary ---
Author Organization [employer] Address [id number] [address] [place] [address] Care Team Providers Care Outside Installer Apprentice Name Role Phone Julio Munroe MD Primary Care Provider [phone] Allergies Active Allergy Reactions Criticality Noted Date Comments Ciprofloxacin Facial Swelling High 09/20/2024 Onion Other (See Comments) Low 03/26/2021 Other Reaction(s): Intolerance diarrhea diarrhea Medications lidocaine (LIDODERM) 5 % Place 1 patch on the skin daily. Remove & Discard patch within 12 hours or as directed by MD Active potassium chloride (KLOR-CON M 20) 20 MEQ CR tablet Take 1 tablet (20 mEq total) by mouth in the morning. Active acetaminophen (TYLENOL EXTRA STRENGTH) 500 mg tablet Take 2 tablets (1,000 mg total) by mouth every 8 (eight) hours. Active polyethylene glycol (GLYCOLAX) 17 gram packet Take 17 g by mouth in the morning. Active hypromellose (NATURES TEARS) drops Administer 1 drop to both eyes every 2 (two) hours as needed for dry eyes. Active empagliflozin (JARDIANCE) 10 mg tablet tablet Take 1 tablet (10 mg total) by mouth in the morning. 90 tablet 5 Active warfarin (COUMADIN) 2.5 mg tablet Take 1 tablet (2.5 mg total) by mouth in the evening. 3 tablet 5 Active Additional Information Patient taking differently: 3 mgoral Daily, Evening, Reported on 12/21/2024 atorvastatin (LIPITOR) 20 mg tablet Take 1 tablet (20 mg total) by mouth nightly. 30 tablet 2 5 Active sennosides-docu sate sodium (SENOKOT-S) 8.6-50 mg Take 2 tablets by mouth 2 (two) times a day as needed for constipation. 30 tablet 1 Active carboxymethylce llulose sodium (ARTIFICIAL TEARS, [facility],) 1 % drops Active furosemide (LASIX) 40 mg tabletIndicatio ns:Edema of both lower legs Take 1 tablet (40 mg total) by mouth daily. 180 tablet 3 Active potassium chloride (K-TAB,KLOR-CON ) 20 mEq CR tablet Take 1 tablet (20 mEq total) by mouth in the morning. Active aspirin 81 mg Take 1 tablet (81 mg total) by mouth in the morning. 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 Encounters Date Type Department Care Team Description 01/05/2025 Orders Only [facility] [address] [place] [phone] External, Scanning Provider 01/04/2025 Orders Only [facility] [address] [place] [phone] External, Scanning Provider 01/03/2025 Orders Only [facility] [address] [place] [phone] External, Scanning Provider 12/29/2024 Orders Only [facility] [address] [place] [address] Caitie Ragland CMA Lymphedema (Primary Dx); Atherosclerosis of [place] artery of both lower extremities with intermittent claudication 12/21/2024 8:50 AM EDT Office Visit [facility] [address] [place] [address] Eduardo Livingston MD Thrombosis of femoral-femoral bypass graft (Primary Dx); Lymphedema 12/21/2024 Travel 12/20/2024 Telephone [facility] Department of [address] [place] [address] Sarah Shoemaker PA 11/13/2024 4:15 PM EDT Ancillary Procedure [facility] [address] [place] [phone] Pain 11/13/2024 3:00 PM EDT Ancillary Procedure [facility] [place] [address] Pain 10/26/2024 2:00 PM EDT Office Visit [facility] Department of [address] [place] [address] Darlene Armendariz MD 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 (CMS-HCC) (Primary Dx); Edema of both lower legs; Chronic atrial fibrillation (CMS-HCC) 10/26/2024 Travel 10/19/2024 9:40 AM EDT Office Visit [facility] [address] [place] [phone] Eduardo Livingston MD Atherosclerosis of [place] artery of both lower extremities with intermittent claudication (Primary Dx); Thrombosis of femoral-femoral bypass graft; Lymphedema 10/19/2024 Travel from Last 3 Months Immunizations No known immunizations Social History Tobacco Use Types Packs/Day Years Used Date Smoking Tobacco: Former Cigarettes Smokeless Tobacco: Never Tobacco Cessation:Counseling Given: Not Answered Comments:Quit in 1987 Alcohol Use Standard Drinks/Week Comments Not Currently 0 (1 standard drink = 0.6 oz pur e alcohol) [facility] Utilities Answer Date Recorded In the past 12 months has th e [employer], gas, oil, or water company threatened to [...] on file Sexual Orientation Not on file Last Filed Vital Signs Vital Sign Reading Time Taken Comments Blood Pressure 106/66 12/21/2024 8:50 AM EDT Pulse 59 12/21/2024 8:50 AM EDT Temperature 36.3 C (97.3 F) 12/21/2024 8:50 AM EDT Respiratory Rate 16 10/04/2024 7:11 AM EDT Oxygen Saturation 97% 10/19/2024 9:30 AM EDT Inhaled Oxygen Concentration - - Weight 68 kg (150 lb) 12/21/2024 8:50 AM EDT Height 172.7 cm (5' 8 ) 10/19/2024 9:30 AM EDT Body Mass Index 22.81 10/19/2024 9:30 AM EDT Plan of Treatment Health Maintenance Due Date Last Done Comments DTaP,Tdap and Td Vaccines (1 - Tdap) 1959 Zoster (Shingles) Vaccine (1 of 2) 1959 Fall Risk Screening 01/17/2004 COVID-19 Vaccine (2 - Jansse n risk series) 10/12/2020 09/14/2020 Influenza Vaccine 03/12/2025 03/28/2024, , 04/07/2022, Additional history exists Depression Screening 10/26/2025 10/26/2024 Tobacco Screening 10/26/2025 10/26/2024 Goals Goal Patient Goal Type Associated Problems Recent Progress Patient-Stated? Author <enter goal here> General Yes Tania Hernandez, RN Note: Evaluation of progress towards goal: DC safely to SNF Medical Devices Not on file Procedures Procedure Name Priority Date/Time Associated Diagnosis Comments CT CTA ABD AORTA W RUNOFF Routine 11/13/2024 4:15 PM EDT Pain VASC ARTERIAL DOPPLER LOWER BILATERAL MULTI LEVEL/PVR Routine 11/13/2024 3:00 PM EDT Pain from Last 3 Months Results * CT angiogram abdominal aorta with runoff (11/13/2024 4:15 PM EDT) us Scanning Provider External IMG CT ORDERABLES Fin al Result MANUALLY TRANSCRIBED RESULTS * Vas art doppler lwr bilat mult lev/PVR (11/13/2024 3:00 PM EDT) us Scanning Provider External CV VASCULAR ORDERABLE S Final Result [facility] from Last 3 Months Insurance [employer] MEDICARE Advance Directives * Full Code (Latest Code Status on File) Date Activated Date Inactivated Comments 09/20/2024 5:42 PM 10/04/2024 6:58 PM Care Teams Outside Installer Apprentice Relationship Specialty Start Date End Date Julio Munroe MD [address] [facility] [address] [place] [address] PCP - General Family Medicine 09/20/24
--- OUTSIDE RECORDS SUMMARY | 2025-01-15 12:35 | XMS_ITS | Encounter Summary ---
Author Organization [facility] Address [address] [place] [address] Care Team Providers Care Baseball Inspector Name Role Phone Tarun Tapia MD Primary Care Provider [phone] Encounter Details Date Type Department Care Team (Late st Contact Info) Description 01/05/2025 Clinisync Result Encounter [facility] External Department Unsolicited Orlin Bain, [address] [place] [address] Social History Tobacco Use Types [...] Office Visit [facility] [address] [place] [address] Connor Hill, DPM FACFAS [address] [place] [address] 02/02/2025 1:45 PM EDT Office Visit [facility] [address] [place] [address] Gabriel Schroeder PA [address] [place] [address] 12/13/2025 1:00 PM EDT Office Visit [facility] [address] [place] [address] Kaylan Barnes MD [address] [place] [address] documented as of this encounter Procedures Procedure Name Priority Date/Time Associated Diagnosis Comments XR HIP 1 VIEW LEFT + PELVIS 01/05/2025 2:51 PM EDT documented in this encounter Results * XR HIP 1 VIEW LEFT + [...] NATHEN Technologist: KATI Procedure Note Radiology, Radiologist, - 01/05/2025 Exam Date/Time: 01/05/2025 14:52 EDT [...] Orlin Bain DO [facility] Final Result documented in this encounter Visit Diagnoses Not on filedocumented in this encounter Care Teams Baseball Inspector Relationship Specialty Start Date End Date Tarun Tapia MD [address] [place] [address] PCP - General Internal Medicine 02/23/24 documented as of this encounter
--- OUTSIDE RECORDS SUMMARY | 2025-01-15 12:35 | XMS_ITS | Encounter Summary ---
Author Organization [facility] Address [address] [place] [address] Care Team Providers Care Driver Merchandiser Name Role Phone Tarun Tapia MD Primary Care Provider [phone] Encounter Details Date Type Department Care Team (Late st Contact Info) Description 01/07/2025 Clinisync Result Encounter [facility] External Department Unsolicited Orlin Bain, [address] [place] [address] Social History Tobacco Use Types [...] Visit [facility] [address] [place] [address] Connor Hill, DPM FAC[facility]AS [address] [place] [address] 02/02/2025 1:45 PM EDT Office Visit [facility] [address] [place] [address] Gabriel Schroeder PA [address] [place] [address] 12/13/2025 1:00 PM EDT Office Visit [facility] [address] [place] [address] Kaylan Barnes MD [address] [place] [address] documented as of this encounter Procedures Procedure Name Priority Date/Time Associated Diagnosis Comments [facility] LYTES Routine 01/07/2025 5:[address] [facility] EGFR Routine 01/07/2025 5:[address] [facility] CREATININE Routine 01/07/2025 5:[address] [facility] CBC W/ AUTO DIFF Routine 01/07/2025 5:[address] [facility] BUN Routine 01/07/2025 5:06 AM EDT documented in this encounter Results * [facility] EGFR (01/07/2025 5:06 AM EDT) Pathologist [facility] EGFR 65 >=59 mL/min/1.[address] [facility] Blood 01/07/2025 5:06 AM EDT 01/07/2025 5:10 AM EDT Narrative [facility] - 01/07/2025 5:34 AM EDT Original Ordering Provider: DO Orlin Bain Orlin Bain DO [facility] Final Result [facility] * [facility] LYTES (01/07/2025 5:06 AM EDT) [facility] SODIUM LVL 138 135 - 145 mmol/L [facility] POTASSIUM 3.7 3.5 - 5.3 mmol/L [facility] CHLORIDE 104 101 - 111 mmol/L [facility] CO2 27 21 - 31 mmol/L [facility] AGAP 11 6 - 16 mEq/L [facility] Blood 01/07/2025 5:06 AM EDT 01/07/2025 5:10 AM EDT Narrative [facility] - 01/07/2025 5:34 AM EDT Original Ordering Provider: DO Orlin Hernández Pocos us Orlin Hernández Pocos DO [facility] Final Result Performing Organization Address [facility] de Phone Number [facility]NC [facility] * [facility] CREATININE (01/07/2025 5:06 AM EDT) [facility] CREATININE 1.1 0.5 - 1.3 mg/dL [facility] Blood 01/07/2025 5:06 AM EDT 01/07/2025 5:10 AM EDT Narrative [facility] - 01/07/2025 5:34 AM EDT Original Ordering Provider: DO Orlin Hernández Pocos us Orlin Hernández Pocos DO [facility] Final Result Performing Organization Address [facility] Phone Number [facility] * (ABNORMAL) [facility] BUN (01/07/2025 5:06 AM EDT) [facility] BUN 28(H) 5 - 21 mg/dL [facility] Blood 01/07/2025 5:06 AM EDT 01/07/2025 5:10 AM EDT Narrative [facility] - 01/07/2025 5:34 AM EDT Original Ordering Provider: DO Orlin Hernández Pocscott us Orlin Hernández Pocos DO [facility] Final Result Performing Organization Address [facility] Phone Number [facility] * (ABNORMAL) [facility] CBC W/ AUTO DIFF (01/07/2025 5:06 AM EDT) [facility] WBC 8.0 4.0 - 11.0 E9/L FT RBC 3.5(L) 4.3 - 5.9 E12/L FT HGB 11.1(L) 13.5 - 17.5 gm/dL FT HCT 32.2(L) 37.7 - 49.0 % FT RDW 15.5(H) 10.9 - 14.2 % FT MCH 31.9 27.0 - 34.0 pg [facility] MCHC 34.3 31.4 - 36.0 gm/dL [facility] MCV 92.8 80.0 - 100.0 fL [facility] MPV 7.0 6.4 - 10.8 fL [facility] PLATELET 212.0 150.0 - 500.0 E9/L [facility] NEUTRO AUTO 72.2 36.0 - 75.0 % [facility] LYMPH AUTO 17.4 14.0 - 50.0 % [facility] MONO AUTO 8.9 4.0 - 14.0 % [facility] EOS AUTO 1.3 0.0 - 8.0 % [facility] BASOPHIL AUTO 0.2 0.0 - 2.0 % [facility] NEUTRO ABSOLUTE 5.8 2.0 - 7.5 E9/L [facility] LYMPH ABSOLUTE 1.4 1.0 - 4.0 E9/L [facility] MONO ABSOLUTE 0.7 0.2 - 1.0 E9/L [facility] EOS ABSOLUTE 0.1 0.0 - 0.5 E9/L [facility] BASOPHIL ABSOLUTE 0.0 0.0 - 0.2 E9/L [facility] Blood 01/07/2025 5:06 AM EDT 01/07/2025 5:10 AM EDT Narrative [facility] - 01/07/2025 5:15 AM EDT Original Ordering Provider: DO Orlin Bain Orlin Bain DO [facility] Final Result [facility] documented in this encounter Visit Diagnoses Not on filedocumented in this encounter Care Teams Driver Merchandiser Relationship Specialty Start Date End Date Tarun Tapia MD [address] [place] [address] PCP - General Internal Medicine 02/23/24 documented as of this encounter
--- OUTSIDE RECORDS SUMMARY | 2025-01-15 12:35 | XMS_ITS | Encounter Summary ---
Author Organization [facility] Address [address] [place] [address] Care Team Providers Care Mainframe Systems Programmer Name Role Phone Tarun Tapia MD Primary Care Provider [phone] Encounter Details Date Type Department Care Team (Late st Contact Info) Description 01/06/2025 Clinisync Result Encounter [facility] External Department Unsolicited Orlin Bain, [address] [place] [address] Social History Tobacco Use Types [...] Visit [facility] [address] [place] [address] Connor Hill, DPM FACFAS [address] [place] [address] 02/02/2025 1:45 PM EDT Office Visit [facility] [address] [place] [address] Gabriel Schroeder PA [address] [place] [address] 12/13/2025 1:00 PM EDT Office Visit [facility] [address] [place] [address] Kaylan Barnes MD [address] [place], [place] [id number] documented as of this encounter Procedures Procedure Name Priority Date/Time Associated Diagnosis Comments [facility] LYTES Routine 01/06/2025 4:46 AM EDT [facility] EGFR Routine 01/06/2025 4:46 AM EDT [facility] CREATININE Routine 01/06/2025 4:46 AM EDT [facility] CBC W/ AUTO DIFF Routine 01/06/2025 4:46 AM EDT [facility] BUN Routine 01/06/2025 4:46 AM EDT documented in this encounter Results * (ABNORMAL) [facility] CBC W/ AUTO DIFF (01/06/2025 4:46 AM EDT) WBC 9.6 4.0 - 11.0 E9/L [facility] RBC 4.0(L) 4.3 - 5.9 E12/L [facility] HGB 12.2(L) 13.5 - 17.5 gm/dL [facility] HCT 36.6(L) 37.7 - 49.0 % [facility] RDW 15.0(H) 10.9 - 14.2 % [facility] MCH 30.7 27.0 - 34.0 pg [facility] MCHC 33.4 31.4 - 36.0 gm/dL [facility] MCV 92.0 80.0 - 100.0 fL [facility] MPV 8.4 6.4 - 10.8 fL [facility] PLATELET 215.0 150.0 - 500.0 E9/L [facility] NEUTRO AUTO 86.2(H) 36.0 - 75.0 % [facility] LYMPH AUTO 8.0(L) 14.0 - 50.0 % [facility] MONO AUTO 5.7 4.0 - 14.0 % [facility] EOS AUTO 0.0 0.0 - 8.0 % [facility] BASOPHIL AUTO 0.1 0.0 - 2.0 % [facility] NEUTRO ABSOLUTE 8.3(H) 2.0 - 7.5 E9/L FT LYMPH ABSOLUTE 0.8(L) 1.0 - 4.0 E9/L [facility] MONO ABSOLUTE 0.5 0.2 - 1.0 E9/L [facility] EOS ABSOLUTE 0.0 0.0 - 0.5 E9/L [facility] BASOPHIL ABSOLUTE 0.0 0.0 - 0.2 E9/L [facility] Blood 01/06/2025 4:46 AM EDT 01/06/2025 5:34 AM EDT Narrative [facility] - 01/06/2025 5:39 AM EDT Original Ordering Provider: DO Orlin Hernández Pocos Orlin Hernández Pocos DO [facility] Final Result [facility] * [facility] EGFR (01/06/2025 4:46 AM EDT) [facility] EGFR 65 >=59 mL/min/1.73 m2 [facility] Blood 01/06/2025 4:46 AM EDT 01/06/2025 5:14 AM EDT Narrative [facility] - 01/06/2025 5:35 AM EDT Original Ordering Provider: DO Orlin Hernández Pocscott us Orlin Hernández Pocos DO [facility] Final Result Performing Organization Address [facility]/ZIP Co de Phone Number [facility] * [facility] LYTES (01/06/2025 4:46 AM EDT) [facility] SODIUM LVL 138 135 - 145 mmol/L [facility] POTASSIUM 3.7 3.5 - 5.3 mmol/L [facility] CHLORIDE 102 101 - 111 mmol/L [facility] CO2 29 21 - 31 mmol/L [facility] AGAP 11 6 - 16 mEq/L [facility] Blood 01/06/2025 4:46 AM EDT 01/06/2025 5:14 AM EDT Narrative [facility] - 01/06/2025 5:35 AM EDT Original Ordering Provider: DO Orlin Hernández Pocos us Orlin Hernández Pocos DO [facility] Final Result Performing Organization Address City/[facility] Co de Phone Number [facility] * [facility] CREATININE (01/06/2025 4:46 AM EDT) [facility] CREATININE 1.1 0.5 - 1.3 mg/dL [facility] Blood 01/06/2025 4:46 AM EDT 01/06/2025 5:14 AM EDT Narrative [facility] - 01/06/2025 5:35 AM EDT Original Ordering Provider: DO Orlin Hernández Pocos us Alberto Pocos DO [facility] Final Result Performing Organization Address [facility] de Phone Number [facility] * (ABNORMAL) [facility] BUN (01/06/2025 4:46 AM EDT) [facility] BUN 23(H) 5 - 21 mg/dL [facility] Blood 01/06/2025 4:46 AM EDT 01/06/2025 5:14 AM EDT Narrative [facility] - 01/06/2025 5:35 AM EDT Original Ordering Provider: DO Orlin Hernández Pocos us Orlin Hernández Pocos DO [facility] Final Result Performing Organization Address [facility] Co de Phone Number [facility] documented in this encounter Visit Diagnoses Not on filedocumented in this encounter Care Teams Mainframe Systems Programmer Relationship Specialty Start Date End Date Tarun Tapia MD [address] [place] [address] PCP - General Internal Medicine 02/23/24 documented as of this encounter
--- OUTSIDE RECORDS SUMMARY | 2025-01-15 12:35 | XMS_ITS | Encounter Summary ---
Author Organization [facility] Address [address] [place] [address] Care Team Providers Care Metal Bed Assembler Name Role Phone Tarun Tapia MD Primary Care Provider [phone] Encounter Details Date Type Department Care Team (Late st Contact Info) Description 01/08/2025 Clinisync Result Encounter [facility] External Department Unsolicited Orlin Bain, [address] [place] [address] Social History Tobacco Use Types [...] Visit [facility] [address] [place] [address] Connor Hill, DPM FACFAS [address] [facility] [place] [address] 02/02/2025 1:45 PM EDT Office Visit [facility] [address] [place] [address] Gabriel Schroeder PA [address] [place] [address] 12/13/2025 1:00 PM EDT Office Visit [facility] [address] [place] [address] Kaylan Barnes MD [address] [place] [address] documented as of this encounter Procedures Procedure Name Priority Date/Time Associated Diagnosis Comments [facility] LYTES Routine 01/08/2025 5:23 AM EDT [facility] EGFR Routine 01/08/2025 5:23 AM EDT [facility] CREATININE Routine 01/08/2025 5:23 AM EDT [facility] CBC W/ AUTO DIFF Routine 01/08/2025 5:23 AM EDT [facility] BUN Routine 01/08/2025 5:23 AM EDT documented in this encounter Results * [facility] EGFR (01/08/2025 5:23 AM EDT) Pathologist [facility] EGFR 59 >=59 mL/min/1.73 m2 [facility] Blood 01/08/2025 5:23 AM EDT 01/08/2025 5:46 AM EDT Narrative [facility] - 01/08/2025 6:10 AM EDT Original Ordering Provider: DO Orlin Bain Orlin Bain DO CLINISYNC Final Result [facility] * [facility] LYTES (01/08/2025 5:23 AM EDT) [facility] SODIUM LVL 137 135 - 145 mmol/L [facility] POTASSIUM 3.6 3.5 - 5.3 mmol/L [facility] CHLORIDE 103 101 - 111 mmol/L [facility] CO2 28 21 - 31 mmol/L [facility] AGAP 10 6 - 16 mEq/L [facility] Blood 01/08/2025 5:23 AM EDT 01/08/2025 5:46 AM EDT Narrative CL[facility]ISYNC - 01/08/2025 6:10 AM EDT Original Ordering Provider: DO Orlin Hernández Pocos us Orlin Hernández Pocos DO CLINISYNC Final Result Performing Organization Address [facility] Phone Number [facility] * FT CREATININE (01/08/2025 5:23 AM EDT) [facility] CREATININE 1.2 0.5 - 1.3 mg/dL [facility] Blood 01/08/2025 5:23 AM EDT 01/08/2025 5:46 AM EDT Narrative CL[facility]ISYNC - 01/08/2025 6:10 AM EDT Original Ordering Provider: DO Orlin Hernández Pocos us Orlin Hernández Pocos DO CLINISYNC Final Result Performing Organization Address [facility] Phone Number [facility] * (ABNORMAL) [facility] BUN (01/08/2025 5:23 AM EDT) [facility] BUN 26(H) 5 - 21 mg/dL [facility] Blood 01/08/2025 5:23 AM EDT 01/08/2025 5:46 AM EDT Narrative CLINISYNC - 01/08/2025 6:10 AM EDT Original Ordering Provider: DO Orlin Hernández Pocscott us Orlin Hernández Pocos DO CLINISYNC Final Result Performing Organization Address [facility] Phone Number [facility] * (ABNORMAL) [facility] CBC W/ AUTO DIFF (01/08/2025 5:23 AM EDT) [facility] WBC 6.5 4.0 - 11.0 E9/L FT RBC 3.5(L) 4.3 - 5.9 E12/L FT HGB 11.0(L) 13.5 - 17.5 gm/dL FT HCT 32.8(L) 37.7 - 49.0 % FT RDW 15.4(H) 10.9 - 14.2 % FT MCH 31.0 27.0 - 34.0 pg FTMC [...] Bain Orlin Bain DO CLINISYNC Final Result [facility] documented in this encounter Visit Diagnoses Not on filedocumented in this encounter Care Teams Metal Bed Assembler Relationship Specialty Start Date End Date Tarun Tapia MD [address] [place] [address] PCP - General Internal Medicine 02/23/24 documented as of this encounter
--- OUTSIDE RECORDS SUMMARY | 2025-01-15 12:35 | XMS_ITS | Encounter Summary ---
Author Organization [facility] Address [address] [place] [address] Care Team Providers Care Terminal Worker Name Role Phone Tarun Tapia MD Primary Care Provider [phone] Encounter Details Date Type Department Care Team (Late st Contact Info) Description 01/04/2025 Clinisync Result Encounter [facility] External Department Unsolicited Orlin Bain, [address] [place] [address] Social History Tobacco Use Types [...] Visit [facility] [address] [place] [address] Connor Hill, DPM FACFAS [address] [place] [address] 02/02/2025 1:45 PM EDT Office Visit [facility] [address] [place] [address] Gabriel Schroeder PA [address] [place] [address] 12/13/2025 1:00 PM EDT Office Visit [facility] [address] [place] [address] Kaylan Barnes MD [address] [place] [address] documented as of this encounter Procedures Procedure Name Priority Date/Time Associated Diagnosis Comments [facility] PT & PTT Routine 01/04/2025 12:54 PM EDT documented in this encounter Results * (ABNORMAL) [facility] PT & PTT (01/04/2025 12:54 PM EDT) PT 22.7(H) 9.4 - 12.5 second(s) [facility] Comment: 15 days - 4 weeks 1 [...] the same coagulation reagent and instrumentation as [facility]. Currently there are no coagulation studies available worldwide for children to 14 days, and no normal ranges. PTT 38.8(H) 25.1 - 36.5 second(s) [facility] Comment: Parameter 15 days - 4 weeks 1 - 5 months 6 - 11 months 1 - 5 years 6 - 10 years 11 - 17 years PTT Mean: 35.4 (27.6-45.6) Mean: 33.5 (24.8-40.7) Mean: 32.4 (25.1-40.7) Mean: 31.6 (24.0-39.2) Mean: 31.6 (26.9-38.7) Mean: 31.0 (24.6-38.4) Pediatric Reference ranges were obtained from a study by mickey Domingo. prepared from 1437 samples obtained at 7 different centers using the same coagulation reagent and instrumentation as [facility]. Currently there are no coagulation studies available worldwide for children to 14 days, and no normal ranges. Heparin therapeutic range (represented by Anti-Factor Xa activity of 0.2 - 0.4 U/mL) corresponds to PTT of 56.6 - 109.0 sec. INR 2.01 [facility] Comment: INR results are specifically intended to assess patients stabilized on long-term Anticoagulation therapy suggested INR???s ???Less Intensive Anticoagulation??? 2.0 ??? 3.0 Conventional Range 3.0 ??? 4.5 Blood 01/04/2025 12:5 4 PM EDT 01/04/2025 12:56 PM EDT Narrative CLINISYNC - 01/04/2025 1:09 PM EDT pt en route to asu for pre op Original Ordering Provider: DO Orlin Bain Orlin Bain DO CLINISYAZ Final Result [facility] documented in this encounter Visit Diagnoses Not on filedocumented in this encounter Care Teams Terminal Worker Relationship Specialty Start Date End Date Tarun Tapia MD [address] [place] [address] PCP - General Internal Medicine 02/23/24 documented as of this encounter
[2025-01-15 13:10] LABS: Potassium 3.3 mmol/L (3.5-5.1)
== END 2025-01-15 12:29 | disposition home or self-care (01) ==
LOC: LAB 12:28
PROVIDERS: PCP Family Medicine; Visit Provider Family Medicine
DX: E87.6 Hypokalemia (principal)
CPT/HCPCS: 36415; 84132

== ENCOUNTER 2025-01-24 10:37 | Outpatient (REF) | payer MEDICARE, SELFPAY ==
--- OUTSIDE RECORDS SUMMARY | 2024-07-01 17:30 | XMS_ITS ---
Author Organization [facility] Address [address] [place], [place] Care Team Providers Care Rn Heart Name Role Phone RENAY wise Primary Care Provider Magalis, Provider Unavailable Unavail able Allergies Allergen (clinical drug ingredient) Drug/Non Drug Allergy documented on EMR Reaction Allergy Type Onset Date Status ciprofloxacin Cipro Unknown Drug Allergy Act jesus RE[facility] Encounter Medications Medication SIG (Take, Route, Frequency, Duration) Notes Start Date End Date Status Folic Acid 1 MG 1 tab(s) orally once a day Active Vitamin B1 100 MG 1 tab(s) orally once a day Active Multivitamin MULTIPLE VITAMINS 1 CAP(S) ORALLY ONCE A DAY *Please review and pick correct strength-formulati on from [facility] options. If intended option is not shown, discontinue and re-order from Quick Search* Active Omeprazole 40 MG 1 cap(s) orally BID for 30 day(s) Active K-DUR 20 20 MEQ 1 TAB(S) ORALLY TID *Please review for potential replacement for e-prescription and drug interaction check* 08/05/2010 Active Encounters Encounter Location Date Provider Diagnosis [facility] [address] [place], [place] 07/01/2024 Provider Magalis Hypokalemia 276.8 Assessments [...] check* Progress Notes * NINA HAINESDOB: [birth year] (85 yo M)Acc No.[id number]:07/01/2024 Patient: NINA NUÑEZ Provider: :1940 A ge:84 Y S ex:Male Date:07/01/2024 Address:[address] [place] [address], [place], [id number] Pcp:RENAY wise Subjective: * Chief Complaints: * [facility] . [facility]. * Medical History: * Medications: T aking Folic Acid 1 MG Tablet 1 tab(s) orally once a day , Taking Multivitamin MULTIPLE VITAMINS CAPSULE 1 CAP(S) ORALLY ONCE A DAY , Notes to Pharmacist: *Please review and pick correct [facility]. If intended option is not shown, [...] * Electronic signature of Molly Blancas on 01/24/2025 at 10:41 AM EDT Sign off status: Pending * Provider: Date: 09/01/2023 Generated for Emy castillo/Abelardo/Jean-Claude on: 0 01/24/2025 10:41 AM EDT
--- OUTSIDE RECORDS SUMMARY | 2025-01-24 10:41 | XMS_ITS | Encounter Summary ---
Author Organization [facility] Address [id number] [address] [place] [address] Care Team Providers Care Biofuels Production Associate Name Role Phone Julio Munroe MD Primary Care Provider [phone] Encounter Details Date Type Department Care Team (Late st Contact Info) Description 09/22/2024 Orders Only [facility] [place] [address] External, Scanning Provider Pain (Primary Dx) Social History Tobacco Use Types Packs/Day Years Used Date Smoking Tobacco: Never Smokeless Tobacco: Never Alcohol Use Standard Drinks/Week Comments Not Currently 0 (1 standard drink = 0.6 oz pur e alcohol) [facility] Utilities Answer Date Recorded In the [...] documented as of this encounter Care Teams Biofuels Production Associate Relationship Specialty Start Date End Date Julio Munroe MD [address] [facility] 110 [place] [address] PCP - General Family Medicine 09/20/24 documented as of this encounter
--- OUTSIDE RECORDS SUMMARY | 2025-01-24 10:41 | XMS_ITS | Encounter Summary ---
Author Organization [facility] Address [id number] [address] [place] [address] Care Team Providers Care Credentialing Manager Name Role Phone Julio Munroe MD Primary Care Provider Encounter Details Date Type Department Care Team (Late st Contact Info) Description 09/21/2024 Orders Only [facility] [place] [address] Transcribe, Orders Support User Social History Tobacco Use Types Packs/Day Years Used Date Smoking Tobacco: Never Smokeless Tobacco: Never Alcohol Use Standard Drinks/Week Comments Not Currently 0 (1 standard drink = 0.6 oz pur e alcohol) [facility] Utilities Answer Date Recorded In the [...] documented as of this encounter Care Teams Credentialing Manager Relationship Specialty Start Date End Date Julio Munroe MD [address] [facility] [address] [place] [address] PCP - General Family Medicine 09/20/24 documented as of this encounter
--- OUTSIDE RECORDS SUMMARY | 2025-01-24 10:41 | XMS_ITS | Encounter Summary ---
Author Organization [facility] Address [id number] [address] [place] [address] Care Team Providers Care Management Department Chair Name Role Phone Julio Munroe MD Primary Care Provider Encounter Details Date Type Department Care Team (Late st Contact Info) Description 09/20/2024 Orders Only [facility] [address] [place] [address] Transcribe, Orders Support User Pain (Primary Dx) Social History Tobacco Use Types Packs/Day Years Used Date Smoking Tobacco: Never Smokeless Tobacco: Never Alcohol Use Standard Drinks/Week Comments Not Currently 0 (1 standard drink = 0.6 oz pur e alcohol) [facility] Utilities Answer Date Recorded In the [...] X 09/20/2024 9:08 AM EDT Sarah Bennett, [employer] documented in this encounter Plan of Treatment [...] documented as of this encounter Care Teams Management Department Chair Relationship Specialty Start Date End Date Julio Munroe MD [address] [place] [address] PCP - General Family Medicine 09/20/24 documented as of this encounter
--- OUTSIDE RECORDS SUMMARY | 2025-01-24 10:42 | XMS_ITS | Encounter Summary ---
Author Organization [facility] Address [id number] [address] [facility] [address] Care Team Providers Care Repulping Supervisor Name Role Phone Julio Munroe MD Primary Care Provider [phone] Encounter Details Date Type Department Care Team (Late st Contact Info) Description 01/04/2025 Orders Only [facility] [address] [place] [address] External, Scanning Provider Social History Tobacco Use Types Packs/Day Years Used Date Smoking Tobacco: Former Cigarettes Smokeless Tobacco: Never Comments:Quit in 1987 Alcohol Use Standard Drinks/Week Comments Not Currently 0 (1 standard drink = 0.6 oz pur e alcohol) [facility] Utilities Answer Date Recorded In the [...] documented as of this encounter Care Teams Repulping Supervisor Relationship Specialty Start Date End Date Julio Munroe MD [address] [facility] [address] [place] [address] PCP - General Family Medicine 09/20/24 documented as of this encounter
--- OUTSIDE RECORDS SUMMARY | 2025-01-24 10:42 | XMS_ITS | Encounter Summary ---
Author Organization [facility] Address [facility]-[id number] [address] [place] [address] Care Team Providers Care Wildlife Technician Name Role Phone Julio Munroe MD Primary Care Provider [phone] Encounter Details Date Type Department Care Team (Late st Contact Info) Description 01/03/2025 Orders Only [facility] [address] [place] [address] External, Scanning Provider Social History Tobacco Use Types Packs/Day Years Used Date Smoking Tobacco: Former Cigarettes Smokeless Tobacco: Never Comments:Quit in 1987 Alcohol Use Standard Drinks/Week Comments Not Currently 0 (1 standard drink = 0.6 oz pur e alcohol) [facility] Utilities Answer Date Recorded In the [...] documented as of this encounter Care Teams Wildlife Technician Relationship Specialty Start Date End Date Julio Munroe MD [address] [facility] [address] [place] [id number] PCP - General Family Medicine 09/20/24 documented as of this encounter
--- OUTSIDE RECORDS SUMMARY | 2025-01-24 10:42 | XMS_ITS ---
Author Organization [facility] Address [facility][id number] [address] [place] [address] Care Team Providers Care Foundry Process Engineer Name Role Phone Julio Munroe MD Primary Care Provider [phone] Active Problems Problem Noted Date Diagnosed Date [...] (cerebrum) 09/20/2024 Prostate cancer 12/28/2016 Atherosclerosis of bois forte ar gibran of extremity with intermittent claudication [...]
--- OUTSIDE RECORDS SUMMARY | 2025-01-24 10:42 | XMS_ITS | Clinical Summary ---
Author Organization [facility] Address [facility][id number] [address] [place] [address] Care Team Providers Care Public Records Officer Name Role Phone Julio Munroe MD Primary Care Provider [phone] Allergies Active Allergy Reactions Criticality Noted Date [...] (cerebrum) 09/20/2024 Prostate cancer 12/28/2016 Atherosclerosis of naknek ar gibran of extremity with intermittent claudication 08/11/2013 Assessment & Plan (10/19/2024 10:34 AM EDT): We will get PVR in the CTA abdomen pelvis with runoff Iliac artery aneurysm 08/11/2013 Encounters Date Type Department Care Team Description 01/05/2025 Orders Only [facility] [address] [place] [phone] External, Scanning Provider 01/04/2025 Orders Only [facility] [address] [place] [address] External, Scanning Provider 01/03/2025 Orders Only [facility] [address] [place] [address] External, Scanning Provider 12/29/2024 Orders Only [facility] [address] [place] [address] Caitie Ragland CMA Lymphedema (Primary Dx); 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 12/21/2024 8:50 AM EDT Office Visit [facility] [address] [place] [address] Eduardo Livingston MD Thrombosis of femoral-femoral bypass graft (Primary Dx); Lymphedema 12/21/2024 Travel 12/20/2024 Telephone [facility] Department of [address] [place] [address] Sarah Shoemaker PA 11/13/2024 4:15 PM EDT Ancillary Procedure [facility] [address] [place] [address] Pain 11/13/2024 3:00 PM EDT Ancillary Procedure [facility] [place] [address] Pain 10/26/2024 2:00 PM EDT Office Visit [facility] Department of [address] [place] [address] Darlene Armendariz MD 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 (CMS-HCC) (Primary Dx); Edema of both lower legs; Chronic atrial fibrillation (CMS-HCC) 10/26/2024 Travel from Last 3 Months Immunizations No known immunizations Social History Tobacco Use Types Packs/Day Years Used Date Smoking Tobacco: Former Cigarettes Smokeless Tobacco: Never Tobacco Cessation:Counseling Given: Not Answered Comments:Quit in 1987 Alcohol Use Standard Drinks/Week Comments Not Currently 0 (1 standard drink = 0.6 oz pur e alcohol) [facility] Utilities Answer Date Recorded In the [...] 5:42 PM 10/04/2024 6:58 PM Care Teams Public Records Officer Relationship Specialty Start Date End Date Julio Munroe MD [address] [facility] [address] [place] [address] PCP - General Family Medicine 09/20/24
--- OUTSIDE RECORDS SUMMARY | 2025-01-24 10:42 | XMS_ITS | Encounter Summary ---
Author Organization [facility] Address [id number] [address] [place] [address] Care Team Providers Care Ironing Pleater Name Role Phone Julio Munroe MD Primary Care Provider [phone] Encounter Details Date Type Department Care Team (Late st Contact Info) Description 01/05/2025 Orders Only [facility] [address] [place] [address] External, Scanning Provider Social History Tobacco Use Types Packs/Day Years Used Date Smoking Tobacco: Former Cigarettes Smokeless Tobacco: Never Comments:Quit in 1987 Alcohol Use Standard Drinks/Week Comments Not Currently 0 (1 standard drink = 0.6 oz pur e alcohol) [facility] Utilities Answer Date Recorded In the past [...] 7:44 AM EST) us Scanning Provider External [facility] Final Result MANUALLY TRANSCRIBED RESULTS * [...] ECG ORDERABLES Final Result Performing Organization Address [facility] de Phone Number MANUALLY TRANSCRIBED RESULTS * [...] documented as of this encounter Care Teams Ironing Pleater Relationship Specialty Start Date End Date Julio Munroe MD [address] [facility] [address] [place] [address] PCP - General Family Medicine 09/20/24 documented as of this encounter
--- OUTSIDE RECORDS SUMMARY | 2025-01-24 10:42 | XMS_ITS | Encounter Summary ---
Author Organization [employer] [facility] Address [id number] [address] [place] [address] Care Team Providers Care Welding Rod Coater Name Role Phone Julio Munroe MD Primary Care Provider [phone] Reason for Visit * Reason Onset Date Comments Sign Off Patient Care 09/28/2024 Encounter Details Date Type Department Care Team (Late st Contact Info) Description 09/28/2024 Telephone [facility] [address] [place] [address] Cassia Pemberton MD [address] [place], [place] [id number] Sign Off Patient Care Social History Tobacco Use Types Packs/Day Years Used Date Smoking Tobacco: Never Smokeless Tobacco: Never Alcohol Use Standard Drinks/Week Comments Not Currently 0 (1 standard drink = 0.6 oz pur e alcohol) C Utilities Answer Date Recorded In the past 12 months has [place], gas, oil, or water [employer] threatened to shut off services in your [...] HE HAS SIGNED OFF PT CARE FROM [facility] DX: ACUTE CVA,AFIB-PT NEEDS TO F/U IN 1-2 WEEKS-[facility] * Telephone Encounter - Alyssa Diaz CMA - 09/28/2024 9:07 AM EDT Pt still currenlty admitted * Telephone Encounter - Genet Plummer - 09/28/2024 9:07 AM EDT Currently admitted * Telephone Encounter - Alyssa Steel MA - 09/28/2024 9:07 AM EDT Pt still currently admitted to [facility]. JLW * Telephone Encounter - Alyssa [...] documented as of this encounter Care Teams Welding Rod Coater Relationship Specialty Start Date End Date Julio Munroe MD [address] [facility] 110 [place] [address] PCP - General Family Medicine 09/20/24 documented as of this encounter
[2025-01-24 11:17] LABS: INR 1.48; Prothrombin Time 15.1 sec (9.0-11.6)
== END 2025-01-24 10:38 | disposition home or self-care (01) ==
LOC: LAB 10:37
PROVIDERS: PCP Family Medicine; Visit Provider Family Medicine
DX: Z79.01 Long term (current) use of anticoagulants (principal)
CPT/HCPCS: 36415; 85610